=== PATIENT | female | born 1990 | race Caucasian/White ===

== ENCOUNTER 2018-04-10 14:30 | Inpatient (IN) | payer OTHER ==
[~2018-04-10] VITALS: Ht 162.6 cm; Wt 67.1 kg
[~2018-04-10 14:30] MED LIST: CLONAZEPAM1 M2 PO; CYCLOBENZAPRINE10 M1 PO; ESCITALOPRAM OX20 MG PO; IBUPROFEN800 M1 PO; TRAZODONE HCL100 M1 PO
[2018-04-10 15:33] LABS: ABSOLUTE BASOPHIL COUNT 0 /CUMM (0.0-0.2); ABSOLUTE EOSINOPHIL COUNT 0.1 /CUMM (0.0-0.7); ABSOLUTE GRANULOCYTE CT 2.1 /CUMM (1.4-6.5); ABSOLUTE LYMPH COUNT 5.2 /CUMM (1.2-3.4); ABSOLUTE MONOCYTE COUNT 0.5 /CUMM (0.10-0.60); BASOPHIL % 0.4 % (0.0-2.0); EOSINOPHIL % 0.9 % (0-5); GRANULOCYTE % 26.5 % (42.2-75.2); HEMATOCRIT 43.1 % (37-47); MEAN CORPUSCULAR HGB 31.5 PG (27.0-31.0); MEAN CORPUSCULAR HGB CONC 33.9 G/DL (33.0-37.0); MEAN CORPUSCULAR VOLUME 92.8 FL (81.0-99.0); MEAN PLATELET VOLUME 8.4 FL (7.4-10.4); PLATELET COUNT 99 /CUMM (130-400); RBC DISTRIBUTION WIDTH 13.6 % (11.5-14.5); RED BLOOD CELL CT 4.65 /CUMM (4.20-5.40); WHITE BLOOD CELL COUNT 7.9 /CUMM (4.8-10.8)
--- NOTE | 2018-04-10 19:13 | ED GI/GU/ABDOMINAL COMPLAINT ---
History of Present Illness General Chief Complaint: General Adult Stated Complaint: PT HAS PAIN UNDER THE BREAST AND VOMITING Source: patient, family Exam Limitations: no limitations Vital Signs & Intake/Output Vital Signs & Intake/Output Vital Signs Date Time Temp Pulse Resp B/P B/P Pulse O2 O2 Flow FiO2 Mean Ox Delivery Rate 04/12 1427 98.4 83 18 100/68 96 Room Air 04/12 0625 97.8 69 20 104/72 98 ED Intake and Output 04/13 0000 04/12 1200 Intake Total 740 Output Total Balance 740 Intake, Oral 740 Allergies Coded Allergies: No Known Allergies (04/08/17) Triage Note: PT TO ED C/O 1.5 WEEKS OF N/V, DIZZINESS, WEAK, LIGHTHEADED. C/O UPPER ABD PAIN X 3 DAYS. PAIN RADIATES TO RIGHT SHOULDER. C/O DARK URINE, NO OTHER S/S. Triage Nurses Notes Reviewed? yes ? n Is pt currently ? No Duration: day(s): Timing: recent history HPI: 27 yo female with a history of hepatitis C presents to the ED for nausea, vomiting, and right upper quadrant abdominal pain x 6 days that as progressively worsened. Patient admits that vomiting started 6 days ago and she admits to having 3-4 episodes per day of copious emesis. The content ranges from food colored to yellow in consistency. Anything will trigger it and it can happen within 5-10 mins after eating. She has taken ibuporfen for it and denies any relief from it. Has difficulty with wanting to eat for fear of emesis. She feels nautious and is okay with uzbek fries and egg drop soup. Tries to stay hydrated by drinking juice, gatorade, and what little water she can tolerate. She also admits that her urine has changed in color consistency and spell during the last three days. Her urine now is dark brown with a strong odor, denies any history of this happening before. She has right upper quadrant epigastric pain that is dull sharp and feels like someone is stepping on her. She admits to nausea, vomiting, abdominal pain, headache, dizziness, loss of appetite, but denies any fever, diarrhea, chest pain, cough, chills, and shortness of breath. She was recently dianosed with Hepatitis C and recovered on her own, she did not receive any treatment. 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 (Jeff Martinez) Reconcile Medications Ondansetron HCl (Zofran) 4 MG TABLET 1 TAB PO TID PRN nausea (Phani HARPER,Arturo Oconnor) Past History Travel History Traveled to [place] past 21 day No Medical History Any Pertinent Medical History? see below for history Neurological: NONE EENT: NONE Cardiovascular: NONE Respiratory: NONE Gastrointestinal: NONE Hepatic: HEP C Renal: NONE Musculoskeletal: NONE Psychiatric: anxiety, insomnia Endocrine: NONE Other Medical Hx: PSORIASIS, EXERCISE INDUCED ASTHMA Surgical History Surgical History: none Psychosocial History What is your primary language Kenyan Tobacco Use: Current Not Daily Daily Tobacco Use Amount/Type: =< 4 Cigarettes daily ETOH Use: denies use Illicit Drug Use: denies illicit drug use Family History Hx Contributory? No (Jeff Martinez) Review of Systems Review of Systems Constitutional: Reports: see HPI. EENTM: Reports: see HPI, icterus. Respiratory: Reports: see HPI. Cardiovascular: Reports: see HPI. GI: Reports: see HPI, abdominal pain, nausea, vomiting. Genitourinary: Reports: see HPI. Musculoskeletal: Reports: see HPI. Skin: Reports: see HPI. Neurological/Psychological: Reports: see HPI. Hematologic/Endocrine: Reports: see HPI. (Jeff Martinez) Physical Exam Physical Exam General Appearance: well developed/nourished, no apparent distress, alert, awake Head: atraumatic, normal appearance Eyes: Bilateral: PERRL, EOMI, abnormal pupil. Ears, Nose, Throat, Mouth: hearing grossly normal Neck: normal inspection Respiratory: normal breath sounds, chest non-tender Cardiovascular: regular rate/rhythm Gastrointestinal: normal bowel sounds, tenderness, hepatomegaly Rectal: normal inspection Back: normal inspection, normal range of motion Extremities: normal range of motion Core Measures ACS in differential dx? No Sepsis Present: No Sepsis Focused Exam Completed? No (Jeff Martinez) Progress Differential Diagnosis: cholecystitis, cholangitis, choledocholithiasis, hepatitis, Plan of Care: Orders Procedure Date/time Status Discharge Patient 04/12 UNK Active Laboratory Tests 04/12/18 0804: Ceruloplasmin Pending, Lyme Disease Antibody Pending, Infectious [place] Titer Pending 04/12/18 0804: Anion Gap 7, Estimated GFR > 60, BUN/Creatinine Ratio 16.7, Total Bilirubin 1.4 H, Direct Bilirubin 0.9 H, AST 200 H, ALT 944 H, Alkaline Phosphatase 226 H, Total Protein 6.2 L, Albumin 3.5, PT 12.5, INR 1.15, CBC w Diff NO MAN DIFF REQ , RBC 4.41, MCV 92.8, MCH 31.4 H, MCHC 33.9, RDW 13.8, MPV 8.8, Gran % 40.4 L, Lymphocytes % 51.2 H, Monocytes % 6.6, Eosinophils % 1.5, Basophils % 0.3, Absolute Granulocytes 2.3, Absolute Lymphocytes 2.9, Absolute Monocytes 0.4, Absolute Eosinophils 0.1, Absolute Basophils 0, ELOISA Titer Pending, Anti-Nuclear Antibody Pending, Ref Lab Test Result Pending, EBV Capsid Ag IgG Ab Pending, EBV Capsid Ag IgM Ab Pending, EBV Nuclear Ag IgG Ab Pending, EBV Interpretation Pending Diagnostic Imaging: Viewed by Me: Ultrasound. Discussed w/RAD: Ultrasound. Radiology Impression: PATIENT: АНДРЕЙ BASSETT PRESENT AGE: 27 PATIENT ACCOUNT NO: [id number] : 88 LOCATION: [facility] ORDERING PHYSICIAN: Odalis WHITTINGTON SERVICE DATE: 04/10/18 EXAM TYPE: US - US-LIMITED ABDOMEN EXAMINATION: US ABDOMEN LIMITED CLINICAL INFORMATION: Upper abdominal pain with elevated AST/ALT. COMPARISON: Abdominal ultrasound 10/01/2016. TECHNIQUE: Real-time imaging of the right upper quadrant abdominal viscera. FINDINGS: PANCREAS: The pancreas is unremarkable. There is a nonspecific enlarged lymph node adjacent to the pancreatic head measuring 2.0 cm. LIVER: Normal. The liver demonstrates normal size, contour and echogenicity. No focal lesion or intrahepatic biliary duct dilatation. GALLBLADDER: No gallstones are identified however the gallbladder wall is markedly thickened and there is probable large volume complex pericholecystic fluid. Gallbladder wall thickness measures up to 5 mm. The patient is tender in this location. COMMON BILE DUCT: Normal in caliber measuring 0.3 cm in diameter. RIGHT KIDNEY: Normal. No hydronephrosis. No renal calculi or focal parenchymal lesions. The kidney measures 12.8 cm in maximum dimension. FREE FLUID: None. IMPRESSION: There is significant gallbladder wall thickening and there is probable large volume complex pericholecystic fluid. No definite calculi are identified. Findings may still be secondary to cholecystitis, hepatitis given the patient's history of elevated AST/ALT, hypoalbuminemia, or gallbladder malignancy. HIDA scan recommended if indicated. There is a nonspecific enlarged 2 cm lymph node adjacent to the pancreatic head. DICTATED BY: Israel Navarro MD DATE/TIME DICTATED:04/10/182020 TRIAL PARALEGAL:JULITA DATE/TIME TRANSCRIBED:2020 CONFIDENTIAL, DO NOT COPY WITHOUT APPROPRIATE AUTHORIZATION. < Electronically signed in Other Vendor System> SIGNED BY: Israel Navarro MD 04/10/182029 Initial ED EKG: none (Jeff Martinez) Departure Departure Disposition: STILL A PATIENT Condition: Stable Clinical Impression Primary Impression: Thickening of wall of gallbladder with pericholecystic fluid Secondary Impressions: Elevated liver function tests Referrals: Sapna Kumar APRN (PCP/Family) Departure Forms: Customer Survey General Discharge Information Admission Note Spoke With: George Mccann MD Documentation of Exam: Documentation of any treatments & extenuating circumstances including Concerns Regarding Discharge (functional status, medication knowledge or non-compliance, living conditions, etc.) that warrant an admission rather than observation: GI consultation. MRCP. Surgery consultation. Possibly HIDA scan/ERCP. Repeat labs. Medically not safe for discharge. Cholecystitis versus choledocholithiasis versus hepatitis. Patient will need close observation. (Jeff Martinez) Departure Prescriptions: Current Visit Scripts Ondansetron HCl (Zofran) 1 TAB PO TID PRN nausea #30 TAB PA/BILINGUAL OPERATOR Co-Sign Statement Statement: ED Attending supervision documentation- [x] I saw and evaluated the patient. I have also reviewed all the pertinent lab results and diagnostic results. I agree with the findings and the plan of care as documented in the PA's/BILINGUAL OPERATOR's documentation. [] I have reviewed the ED Record and agree with the PA's/BILINGUAL OPERATOR's documentation. [] Additions or exceptions (if any) to the PAs/BILINGUAL OPERATOR's note and plan are summarized below: [] (Phani HARPER,Arturo Oconnor) Sig/Gabriel Start time Last Medication Dose Stop Time Status Admin Bisacodyl 10 MG ONCE ONE 04/11 1200 AC (Dulcolax Supp) 04/11 1201 Sodium Chloride 1,000 ML Q13H 04/11 0045 AC 04/11 (Normal Saline 0.9%) 04/12 0244 0044 Ondansetron HCl 4 MG Q6P PRN 04/10 2300 AC 04/11 (Zofran) 0256 Trimethobenzamide HCl 200 MG 4 TIMES/DAY PRN 04/10 2300 AC (Tigan) Acetaminophen 650 MG Q6P PRN 04/10 2215 AC 04/11 (Tylenol) 0256 Acetaminophen 1,000 MG Q6P PRN 04/10 2215 AC (Ofirmev) Laboratory Tests 04/11/18 0700: Anion Gap 8, Estimated GFR > 60, BUN/Creatinine Ratio 13.3, Total Bilirubin 2.0 H, Direct Bilirubin 1.7 H, AST 372 H, ALT 1284 H, Alkaline Phosphatase 219 H , Total Protein 5.4 L, Albumin 3.0 L, Triglycerides 119, Cholesterol 85, LDL Cholesterol, Calc 42 L, HDL Cholesterol 20 L, Cholesterol/HDL Ratio 4, CBC w Diff Pending, WBC Pending, RBC Pending, Hgb Pending, Hct Pending, MCV Pending, MCH Pending, MCHC Pending, RDW Pending, Plt Count Pending, MPV Pending, Gran % Pending, Lymphocytes % Pending, Monocytes % Pending, Eosinophils % Pending, Basophils % Pending, Absolute Granulocytes Pending, Absolute Lymphocytes Pending , Absolute Monocytes Pending, Absolute Eosinophils Pending, Absolute Basophils Pending, HCV RNA (PCR) IUs/ml Pending, HCV RNA PCR log IUs/ml Pending 04/11/18 0042: Urine Opiates Screen < 100, Methadone Screen < 40, Barbiturate Screen < 60, Ur Phencyclidine Scrn < 6.00, Amphetamines Screen < 100, U Benzodiazepines Scrn < 85, Urine Cocaine Screen < 50, Urine Cannabis Screen < 5.00 04/10/18 1747: Urine Color YEL, Urine Clarity HAZY H, Urine pH 7.0, Ur Specific [place] 1.015, Urine Protein NEG, Urine Ketones NEG, Urine Nitrite NEG, Urine Bilirubin POS@ ICTO H, Urine Urobilinogen >=8.0 H, Ur Leukocyte Esterase SMALL H, Ur Microscopic SEDIMENT EXAMINED, Urine WBC 1-3 H, Ur Epithelial Cells MANY H, Urine Bacteria MOD H, Urine Mucus FEW, Urine Hemoglobin NEG, Urine Glucose NEG 04/10/18 1526: Anion Gap 7, Estimated GFR > 60, BUN/Creatinine Ratio 17.1, Glucose 108 H, Calcium 8.8, Total Bilirubin 2.7 H, AST 716 H, ALT 1796 H, Alkaline Phosphatase 244 H, Total Protein 6.4, Albumin 3.6, Globulin 2.8, Albumin/ Globulin Ratio 1.3, Lipase 48, PT 13.5 H, INR 1.24 H, APTT 37, CBC w Diff MAN DIFF ORDERED, RBC 4.65, MCV 92.8, MCH 31.5 H, MCHC 33.9, RDW 13.6, MPV 8.4, Gran % 26.5 L, Lymphocytes % 65.7 H, Monocytes % 6.5, Eosinophils % 0.9, Basophils % 0.4, Absolute Granulocytes 2.1, Absolute Lymphocytes 5.2 H, Absolute Monocytes 0.5, Absolute Eosinophils 0.1, Absolute Basophils 0, Platelet Estimate DECREASED, Normocytic RBCs VERIFIED, Normochromic RBCs VERIFIED, Hepatitis A IgM Ab Pending, Hep Bs Antigen Pending, Hep B Core IgM Ab Conf Pending, Hepatitis C Antibody Pending, HIV 1&2 Ab Western Blot NONREACTIVE, Serum Alcohol < 10.0 Diagnostic Imaging: Viewed by Me: Ultrasound. Discussed w/RAD: Ultrasound. Radiology Impression: PATIENT: АНДРЕЙ BASSETT PRESENT AGE: 27 PATIENT ACCOUNT NO: [id number] : 88 LOCATION: [facility] ORDERING PHYSICIAN: Odalis WHITTINGTON SERVICE DATE: 04/10/18 EXAM TYPE: US - US-LIMITED ABDOMEN EXAMINATION: US ABDOMEN LIMITED CLINICAL INFORMATION: Upper abdominal pain with elevated AST/ALT. COMPARISON: Abdominal ultrasound 10/01/2016. TECHNIQUE: Real-time imaging of the right upper quadrant abdominal viscera. FINDINGS: PANCREAS: The pancreas is unremarkable. There is a nonspecific enlarged lymph node adjacent to the pancreatic head measuring 2.0 cm. LIVER: Normal. The liver demonstrates normal size, contour and echogenicity. No focal lesion or intrahepatic biliary duct dilatation. GALLBLADDER: No gallstones are identified however the gallbladder wall is markedly thickened and there is probable large volume complex pericholecystic fluid. Gallbladder wall thickness measures up to 5 mm. The patient is tender in this location. COMMON BILE DUCT: Normal in caliber measuring 0.3 cm in diameter. RIGHT KIDNEY: Normal. No hydronephrosis. No renal calculi or focal parenchymal lesions. The kidney measures 12.8 cm in maximum dimension. FREE FLUID: None. IMPRESSION: There is significant gallbladder wall thickening and there is probable large volume complex pericholecystic fluid. No definite calculi are identified. Findings may still be secondary to cholecystitis, hepatitis given the patient's history of elevated AST/ALT, hypoalbuminemia, or gallbladder malignancy. HIDA scan recommended if indicated. There is a nonspecific enlarged 2 cm lymph node adjacent to the pancreatic head. DICTATED BY: Israel Navarro MD DATE/TIME DICTATED:04/10/182020 TRIAL PARALEGAL:JULITA DATE/TIME TRANSCRIBED:2020 CONFIDENTIAL, DO NOT COPY WITHOUT APPROPRIATE AUTHORIZATION. < Electronically signed in Other Vendor System> SIGNED BY: Israel Navarro MD 04/10/182029 Initial ED EKG: none Departure Departure Disposition: STILL A PATIENT Condition: Stable Clinical Impression Primary Impression: Thickening of wall of gallbladder with pericholecystic fluid Secondary Impressions: Elevated liver function tests Referrals: Sapna Kumar APRN (PCP/Family) Departure Forms: Customer Survey General Discharge Information Admission Note Spoke With: George Mccann MD Documentation of Exam: Documentation of any treatments & extenuating circumstances including Concerns Regarding Discharge (functional status, medication knowledge or non-compliance, living conditions, etc.) that warrant an admission rather than observation: GI consultation. MRCP. Surgery consultation. Possibly HIDA scan/ERCP. Repeat labs. Medically not safe for discharge. Cholecystitis versus choledocholithiasis versus hepatitis. Patient will need close observation.
--- NOTE | 2018-04-10 20:30 | ULTRASOUND REPORT ---
EXAMINATION: US ABDOMEN LIMITED CLINICAL INFORMATION: Upper abdominal pain with elevated AST/ALT. COMPARISON: Abdominal ultrasound 10/01/2016. TECHNIQUE: Real-time imaging of the right upper quadrant abdominal viscera. FINDINGS: PANCREAS: The pancreas is unremarkable. There is a nonspecific enlarged lymph node adjacent to the pancreatic head measuring 2.0 cm. LIVER: Normal. The liver demonstrates normal size, contour and echogenicity. No focal lesion or intrahepatic biliary duct dilatation. GALLBLADDER: No gallstones are identified however the gallbladder wall is markedly thickened and there is probable large volume complex pericholecystic fluid. Gallbladder wall thickness measures up to 5 mm. The patient is tender in this location. COMMON BILE DUCT: Normal in caliber measuring 0.3 cm in diameter. RIGHT KIDNEY: Normal. No hydronephrosis. No renal calculi or focal parenchymal lesions. The kidney measures 12.8 cm in maximum dimension. FREE FLUID: None. IMPRESSION: There is significant gallbladder wall thickening and there is probable large volume complex pericholecystic fluid. No definite calculi are identified. Findings may still be secondary to cholecystitis, hepatitis given the patient's history of elevated AST/ALT, hypoalbuminemia, or gallbladder malignancy. HIDA scan recommended if indicated. There is a nonspecific enlarged 2 cm lymph node adjacent to the pancreatic head.
[2018-04-10 21:24] LABS: PT 13.5 SEC (9.4-12.5); PTT 37 SEC (25-37)
[2018-04-10] MEDS ORDERED: IBUPROFEN600 M1 PO (21:28)
--- NOTE | 2018-04-10 22:06 | History & Physical ---
Jimmy Rush 04/10/185: General Information and HPI MD Statement: I have seen and personally examined АНДРЕЙ BASSETT and documented this H&P. The patient is a 27 year old F who presented with a patient stated chief complaint of []. Source of Information: patient History of Present Illness: 27-year-old female active smoker with past medical history of hepatitis C 2017( without treatment), , JOVITA 2 status post cryotherapy ablation, history of heroin abuse presented to emergency department complaining of nausea vomiting for the last 5 days and then epigastric for the last 3 days. According to the patient she has been vomiting yellow in color, nonbloody since 5 days. It is associated with pain epigastrium which is dull and having intense intensity 5 / 10 with no relieving or aggravating factor and no radiation toward the back. Review of system is significant for black color urine and loss of appetite. She denies fever, chills, chest pain, palpitation, joint pain, burning micturition. Allergies/Medications Allergies: Coded Allergies: No Known Allergies (04/08/17) Home Med list Ibuprofen 600 MG TABLET 1 TAB PO ONCE PAIN/INFLAMMATION (Reported) with food Past History Travel History Traveled to [place] past 21 day No Medical History Neurological: NONE EENT: NONE Cardiovascular: NONE Respiratory: NONE Gastrointestinal: NONE Hepatic: HEP C Renal: NONE Musculoskeletal: NONE Psychiatric: anxiety, insomnia Endocrine: NONE Other Medical Hx: PSORIASIS, EXERCISE INDUCED ASTHMA Surgical History Surgical History: none Past Family/Social History Psychosocial History ETOH Use: denies use Illicit Drug Use: denies illicit drug use, Heroin abuse Review of Systems Review of Systems Cardiovascular: Reports: see HPI. Exam & Diagnostic Data Last 24 Hrs of Vital Signs/I&O Vital Signs Date Time Temp Pulse Resp B/P B/P Pulse O2 O2 Flow FiO2 Mean Ox Delivery Rate 04/10 2332 98.3 74 16 108/62 99 Room Air 04/10 2126 98.1 78 16 111/58 99 Room Air 04/10 1825 97.7 88 18 110/78 98 Room Air 04/10 1440 97.6 88 20 122/87 98 Room Air Intake & Output 04/10 1600 04/10 0800 04/10 0000 Intake Total Output Total Balance Patient 148 lb Weight Weight Reported by Patient Measurement Method Physical Exam General Appearance Alert, Oriented X3, Cooperative, No Acute Distress Cardiovascular Regular Rate, Normal S1, Normal S2, No Murmurs, Gallops, Rubs Lungs Clear to Auscultation, Normal Air Movement Abdomen Normal Bowel Sounds, Soft, Epigistriam tenderness, Rosales sign positive Extremities No Clubbing, No Cyanosis, No Edema, Normal Pulses, No Tenderness/ Swelling Assessment/Plan Assessment: 27-year-old female active smoker with past medical history of hepatitis C 2017( without antivirli treatment), , JOVITA 2 status post cryotherapy ablation, history of heroin abuse presented to emergency department complaining of nausea vomiting for the last 5 days and then epigastric for the last 3 days. At the time of presentation to emergency department her labs and vitals are given below Vitals: Temperature 97.6, heart rate 88, respiratory rate 20, blood pressure 122/87, oxygen saturation 98% Labs: CBC. WBC 7.9, hemoglobin/hematocrit 14.6/43.1, MCV 92.8, platelet count 99, Sodium 139, potassium 4.2, chloride 101, anion gap 7, bun 12, creatinine 0.7, GFR more than 60, bun/creatinine ratio 17.1, glucose 108 AST is/ALT 7 1 12/1795, alkaline phosphatase 244, albumin 3.6, total protein 6.4 Lipase 48 Ultrasonography: Gallbladder wall thickening and probably large volume complex pericholecystic fluid Cholecystitis Enlarged lymph node adjacent to the pancreatic head Problems list: -Acalculous cholecystitis -Hepatitis C flare -Cholangitis? -Constipation Acalculous cholecystitis: * Rosales sign is positive * Ultrasound finding is suggestive of cholecystitis * Patient will be admitted to general medical floor * IV access * For now the patient is n.p.o. for expected gastroenterology recommendation for intervention * Plan MRCP for today for the ntermediate probability of cholangitis * We will follow gastroenterology recommendation * Patient having pain in the epigastrium area * On examination Rosales sign is positive Hepatitis C flare: * Patient having history of hepatitis most probably due to IV drug abuse * ALT/Ast elevated * Patient having no hx of antiviril theraphy for Hepatitis C. * We will consider hepatitis C viral load * Other hepatitis D, hepatitis B, hepatitis C serology * We will follow labs * Low platelets count Cholangitis: * There is intermediate possibility of cholangitis * Although there is no dilatation of CBD * ALP is elevated without any stone in the CBD * There is no fever, leukocytosis * Will follow MRCP reports and GI recommendation Constipation: * We will give Dulcolax enema * Will follow the patient further *Follow-up series liver function test *Autoimmune workup *Workup for HIV ALPS Code status Full code As Ranked By This Provider Problem List: 1. Elevated LFTs 2. Transaminitis 3. RUQ abdominal pain 4. Cholecystitis 5. Constipation Core Measures/Misc (04/13) Sepsis (View protocol) If YES complete Sepsis Event Note If YES complete Sepsis Event Note Patti HARPER,Dennise 04/11/18 0159: Review of Systems Review of Systems Constitutional: Reports: see HPI. Core Measures/Misc (04/13) Acute Coronary Syndrome ACS Diagnosis: No Congestive Heart Failure Congestive Heart Failure Diagnosis No Cerebrovascular Accident CVA/TIA Diagnosis: No VTE (View Protocol) VTE Risk Factors Acute Medical Illness No Mechanical VTE Prophylaxis d/t N/A MechProphylax Ordered No VTE Pharm Prophylaxis d/t NA PharmProphylax ordered Sepsis (View protocol) Sepsis Present: No If YES complete Sepsis Event Note If YES complete Sepsis Event Note Resident Review Statement Resident Statement: examined this patient, discussed with manager internal, agreed with manager internal, discussed with family, reviewed EMR data (avail), discussed with nursing , discussed with case mgmt, reviewed images, amended to note Other Findings: Patient is a 27-year-old female with past medical history significant for untreated hepatitis C (inactive), IV drug abuse with heroin in remission for the past year, 2 pack smoking history, anxiety, psoriasis presents to [facility] with concerns of significant nausea and vomiting for the past 5 days, right upper quadrant abdominal pain for the past 3 days. Patient also notes dark urine for the past 3 days and children's tutor nursery stools. Patient denies any similar episodes in the past, denies fevers/chills. Review of systems completely negative. VS at presentation are stable. Physical exam significant for RUQ pain, + murphys sign. Clear lungs, normal heart sounds. Labs did show thormbocytopenia 99, BUN/Cr 12/0.7, AST/ALT 716/1796, ALP 244, total Bili 2.7, INR 1.24. UA hazy iwth + bili. Utox negative. Hep panel pending. Differntial Acute RUQ abdominal pain with referred pain to right shoulder typical for acute cholecystits with physcal exam correlating with + murphys sign. Abdominal ultrasound did show complex pericholecystic fluid with gall bladder thickening raising concern of ? malignancy. Transaminitis AST/ALT 716/1796, Elevated ALP 244, Elevated Bili are concerning for acute cholangitis on top of cholecystitis. Other remote possibilities are autoimmune hepatitis, hepatitis C flare up, Superadded hepatitis D infection. Patient appears very stable and so admitted to general medicine floor. Plan Admit to general medicine floor Acute RUQ pain * USG - Large pericholecystic fluid with gall bladder thickening * Proceed with MRCP for intermediate probability of cholangitis (no CBD dilatation) * If positive MRCP for stones --> ERCP * IV fluids * IV antiemetics * NPO for now * Hold abx given no white count, stable vitals - if decompensates low threshold to start * Trend LFT's, chem panel, CBC * Consider autoimmune panel * HIV/hepatitis panel H/o IV drug abuse Low AG, Thrombocytopenia. * Obtain Hep C viral load * Consider reactivation as a potential diagnosis * Patient reports being clean and had 2 kids. Constipation Since apr 06. * dulcolax supp * miralax, dulcolax, sennaS after MRCP\ * Consider Enema if the above do not help. DVT prophylaxis ALPS Code status Full code Ramy HARPERGeorge 04/11/18 0630: Core Measures/Misc (04/13) Sepsis (View protocol) If YES complete Sepsis Event Note If YES complete Sepsis Event Note Attending MD Review Statement Attending Statement Attending MD Statement: examined this patient, discuss w/resident/PA/BELL PERSON, agreed w/resident/PA/BELL PERSON, reviewed EMR data (avail), discussed with nursing, discussed with case mgmt, amended to note Attending Assessment/Plan: This patient is a 27-year-old white female with a significant past medical history for untreated hepatitis C (?inactive), IV drug abuse with heroin in remission for the past year, 2 pack smoking history, anxiety, psoriasis who presents to [facility] with concerns of significant nausea and vomiting for the past 5 days, right upper quadrant abdominal pain for the past 3 days. Patient also notes dark urine for the past 3 days and children's tutor nursery stools. She denies any similar episodes in the past and denies fevers/chills. Upon evaluation in the emergency department the patient is afebrile, vital signs stable, no elevation in her white blood cell count, mild elevation in her INR to 1.24, AST 716, ALT 1796, alkaline phosphatase 244, abdominal ultrasound There is significant gallbladder wall thickening and there is probable large volume complex pericholecystic fluid. No definite calculi are identified. Findings may still be secondary to cholecystitis, hepatitis given the patient's history of elevated AST/ALT, hypoalbuminemia, or gallbladder malignancy. HIDA scan recommended if indicated. There is a nonspecific enlarged 2 cm lymph node adjacent to the pancreatic head.. A surgical consultation was obtained while she was in the ER Laboratory data concerning for hepatitis or choledocholithiasis. Given absence of biliary ductal dilatation on ultrasound, doubt stone disease. Ultrasound confirms the absence of stones. Recommend hepatitis w/u. GI consultation. Supect gallbladder wall thickening secondary to hepatitis.. The patient will be admitted to general med for hepatitis, cholecystitis, abdominal pain and nausea and vomiting. Will proceed with MRCP for intermediate probability of cholangitis (no CBD dilatation), IV fluids, IV antiemetics, NPO for now. Hold abx given and obtain HIV/hepatitis panel. Full code
--- NOTE | 2018-04-10 22:30 | PN- General Surgery ---
Subjective Subjective: error Objective Vital Signs and I&Os error Physical Exam: error Assessment/Plan Assessment/Plan error Core Measures Venous Thromboembolism VTE Risk Factors Other No Mechanical VTE Prophylaxis d/t Other No VTE Pharm Prophylaxis d/t Other 04/10 1825 97.7 88 18 110/78 98 Room Air 04/10 1440 97.6 88 20 122/87 98 Room Air Intake & Output 04/10 1600 04/10 0800 04/10 0000 04/09 1600 04/09 0804/09 0000 Intake Total Output Total Balance Patient 148 lb Weight Weight Reported by Patient Measurement Method Physical Exam: gen- nad [id number] pulm-ctab abd-soft, nd, ttp epigastrum/ruq, no r/g ext- calves soft nt bl Results Last 48 Hours of Labs: Laboratory Tests 04/10 04/10 1747 1526 Chemistry Sodium (137 - 145 mmol/L) 139 Potassium (3.5 - 5.1 mmol/L) 4.2 Chloride (98 - 107 mmol/L) 101 Carbon Dioxide (22 - 30 mmol/L) 31 H Anion Gap (5 - 16) 7 BUN (7 - 17 mg/dL) 12 Creatinine (0.5 - 1.0 mg/dL) 0.7 Estimated GFR (>60 ml/min) > 60 BUN/Creatinine Ratio (7 - 25 %) 17.1 Glucose (65 - 99 mg/dL) 108 H Calcium (8.4 - 10.2 mg/dL) 8.8 Total Bilirubin (0.2 - 1.3 mg/dL) 2.7 H AST (14 - 36 U/L) 716 H ALT (9 - 52 U/L) 1796 H Alkaline Phosphatase (<127 U/L) 244 H Total Protein (6.3 - 8.2 g/dL) 6.4 Albumin (3.5 - 5.0 g/dL) 3.6 Globulin (1.9 - 4.2 gm/dL) 2.8 Albumin/Globulin Ratio (1.1 - 2.2 %) 1.3 Lipase (23 - 300 U/L) 48 Coagulation PT (9.4 - 12.5 SEC) 13.5 H INR (0.90 - 1.19) 1.24 H APTT (25 - 37 SEC) 37 Hematology CBC w Diff MAN DIFF ORDERED WBC (4.8 - 10.8 /CUMM) 7.9 RBC (4.20 - 5.40 /CUMM) 4.65 Hgb (12.0 - 16.0 G/DL) 14.6 Hct (37 - 47 %) 43.1 MCV (81.0 - 99.0 FL) 92.8 MCH (27.0 - 31.0 PG) 31.5 H MCHC (33.0 - 37.0 G/DL) 33.9 RDW (11.5 - 14.5 %) 13.6 Plt Count (130 - 400 /CUMM) 99 L MPV (7.4 - 10.4 FL) 8.4 Gran % (42.2 - 75.2 %) 26.5 L Lymphocytes % (20.5 - 51.1 %) 65.7 H Monocytes % (1.7 - 9.3 %) 6.5 Eosinophils % (0 - 5 %) 0.9 Basophils % (0.0 - 2.0 %) 0.4 Absolute Granulocytes (1.4 - 6.5 /CUMM) 2.1 Absolute Lymphocytes (1.2 - 3.4 /CUMM) 5.2 H Absolute Monocytes (0.10 - 0.60 /CUMM) 0.5 Absolute Eosinophils (0.0 - 0.7 /CUMM) 0.1 Absolute Basophils (0.0 - 0.2 /CUMM) 0 Platelet Estimate (ADEQUATE) DECREASED Normocytic RBCs VERIFIED Normochromic RBCs VERIFIED Serology Hepatitis A IgM Ab (NONREACTIVE) Pending Hep Bs Antigen (NONREACTIVE) Pending Hep B Core IgM Ab Conf (NONREACTIVE) Pending Hepatitis C Antibody (NONREACTIVE) Pending Toxicology Serum Alcohol (<10 MG/DL) < 10.0 Urines Urine Color (YEL,AMB,STR) YEL Urine Clarity (CLEAR) HAZY H Urine pH (5.0 - 8.0) 7.0 Ur Specific [place] (1.001 - 1.035) 1.015 Urine Protein (NEG,<30 MG/DL) NEG Urine Ketones (NEG) NEG Urine Nitrite (NEG) NEG Urine Bilirubin (NEG) POS@ICTO H Urine Urobilinogen (0.1 - 1.0 EU/dl) >=8.0 H Ur Leukocyte Esterase (NEG) SMALL H Ur Microscopic SEDIMENT EXAMINED Urine WBC (0 - 2 /HPF) 1-3 H Ur Epithelial Cells (NONE,FEW) MANY H Urine Bacteria (NEG/NONE) MOD H Urine Mucus (FEW,NONE) FEW Urine Hemoglobin (NEG) NEG Urine Glucose (N MG/DL) NEG Recent Imaging Studies: SERVICE DATE: 04/10/18 EXAM TYPE: US - US-LIMITED ABDOMEN EXAMINATION: US ABDOMEN LIMITED CLINICAL INFORMATION: Upper abdominal pain with elevated AST/ALT. COMPARISON: Abdominal ultrasound 10/01/2016. TECHNIQUE: Real-time imaging of the right upper quadrant abdominal viscera. FINDINGS: PANCREAS: The pancreas is unremarkable. There is a nonspecific enlarged lymph node adjacent to the pancreatic head measuring 2.0 cm. LIVER: Normal. The liver demonstrates normal size, contour and echogenicity. No focal lesion or intrahepatic biliary duct dilatation. GALLBLADDER: No gallstones are identified however the gallbladder wall is markedly thickened and there is probable large volume complex pericholecystic fluid. Gallbladder wall thickness measures up to 5 mm. The patient is tender in this location. COMMON BILE DUCT: Normal in caliber measuring 0.3 cm in diameter. RIGHT KIDNEY: Normal. No hydronephrosis. No renal calculi or focal parenchymal lesions. The kidney measures 12.8 cm in maximum dimension. FREE FLUID: None. IMPRESSION: There is significant gallbladder wall thickening and there is probable large volume complex pericholecystic fluid. No definite calculi are identified. Findings may still be secondary to cholecystitis, hepatitis given the patient's history of elevated AST/ALT, hypoalbuminemia, or gallbladder malignancy. HIDA scan recommended if indicated. There is a nonspecific enlarged 2 cm lymph node adjacent to the pancreatic head. Assessment/Plan Assessment/Plan A- 27F with 1 week hx RUQ/epigastric pain with elevated LFTs, Hx untreated hepC 1 year ago, without WBC, without gallstones or ductal dilation on imaging, likely viral in nature. P- rec Gi consult, medical evaluation will fu labs, hep panel, mrcp possible cholecystectomy if workup leads to diagnosis of cholecystitis/ symptomatic cholelithiasis dw Dr. astudillo. Will cont to follow Problem List: 1. RUQ abdominal pain
--- NOTE | 2018-04-10 22:54 | Cons- General Surgery ---
See Addendum Ana Thomas 04/10/18 2253: General Information and HPI Consulting Request Date of Consult: 04/10/18 Requested By: George Mccann MD Reason for Consult: ruq pain, elevated lfts History of Present Illness: 27yoF presents to ED with 1 week history persistent ruq abd pain with intermittent nausea/vomiting and decreased appetite. Hx HepC diagnosed 1 year ago, untreated due to financial reasons, though self resolved per pt. Denies symptoms since onset 1 year ago. Current pain began 1 week ago, has been vomiting intermittently though still eating, though admits to decreased appetite. Denies recent change in diet or lifestyle, denies etoh use, denies current ivda (last use 1 year ago). No fevers, chills, cp, sob. PMHx also inclused anxiety and depression, though does not take perscribed meds due to lack of finances. PSurg hx includes c/s x1. Allergies/Medications Allergies: Coded Allergies: No Known Allergies (04/08/17) Home Med List: Ibuprofen 600 MG TABLET 1 TAB PO ONCE PAIN/INFLAMMATION (Reported) with food Past History Medical History Neurological: NONE EENT: NONE Cardiovascular: NONE Respiratory: NONE Gastrointestinal: NONE Hepatic: HEP C Renal: NONE Musculoskeletal: NONE Psychiatric: anxiety, depression, insomnia Endocrine: NONE Surgical History Pertinent Surgical History: Psychosocial History Smoking Status: Current Everyday Smoker ETOH Use: denies use Illicit Drug Use: denies illicit drug use, hx ivda, clean x1 year Employment History Employment: Unemployed Exam & Diagnostic Data Vital Signs and I&O Vital Signs Date Time Temp Pulse Resp B/P B/P Pulse O2 O2 Flow FiO2 Mean Ox Delivery Rate 04/10 2126 98.1 78 16 111/58 99 Room Air 04/10 1825 97.7 88 18 110/78 98 Room Air 04/10 1440 97.6 88 20 122/87 98 Room Air Intake & Output 04/10 1600 04/10 0800 04/10 0000 04/09 1600 04/09 0804/09 0000 Intake Total Output Total Balance Patient 148 lb Weight Weight Reported by Patient Measurement Method Physical Exam: gen- nad [id number] pulm-ctab abd-soft, nd, ttp epigastrum/ruq, no r/g ext- calves soft nt bl Last 24 Hours of Labs: Laboratory Tests 04/10 04/10 1747 1526 Chemistry Sodium (137 - 145 mmol/L) 139 Potassium (3.5 - 5.1 mmol/L) 4.2 Chloride (98 - 107 mmol/L) 101 Carbon Dioxide (22 - 30 mmol/L) 31 H Anion Gap (5 - 16) 7 BUN (7 - 17 mg/dL) 12 Creatinine (0.5 - 1.0 mg/dL) 0.7 Estimated GFR (>60 ml/min) > 60 BUN/Creatinine Ratio (7 - 25 %) 17.1 Glucose (65 - 99 mg/dL) 108 H Calcium (8.4 - 10.2 mg/dL) 8.8 Total Bilirubin (0.2 - 1.3 mg/dL) 2.7 H AST (14 - 36 U/L) 716 H ALT (9 - 52 U/L) 1796 H Alkaline Phosphatase (<127 U/L) 244 H Total Protein (6.3 - 8.2 g/dL) 6.4 Albumin (3.5 - 5.0 g/dL) 3.6 Globulin (1.9 - 4.2 gm/dL) 2.8 Albumin/Globulin Ratio (1.1 - 2.2 %) 1.3 Lipase (23 - 300 U/L) 48 Coagulation PT (9.4 - 12.5 SEC) 13.5 H INR (0.90 - 1.19) 1.24 H APTT (25 - 37 SEC) 37 Hematology CBC w Diff MAN DIFF ORDERED WBC (4.8 - 10.8 /CUMM) 7.9 RBC (4.20 - 5.40 /CUMM) 4.65 Hgb (12.0 - 16.0 G/DL) 14.6 Hct (37 - 47 %) 43.1 MCV (81.0 - 99.0 FL) 92.8 MCH (27.0 - 31.0 PG) 31.5 H MCHC (33.0 - 37.0 G/DL) 33.9 RDW (11.5 - 14.5 %) 13.6 Plt Count (130 - 400 /CUMM) 99 L MPV (7.4 - 10.4 FL) 8.4 Gran % (42.2 - 75.2 %) 26.5 L Lymphocytes % (20.5 - 51.1 %) 65.7 H Monocytes % (1.7 - 9.3 %) 6.5 Eosinophils % (0 - 5 %) 0.9 Basophils % (0.0 - 2.0 %) 0.4 Absolute Granulocytes (1.4 - 6.5 /CUMM) 2.1 Absolute Lymphocytes (1.2 - 3.4 /CUMM) 5.2 H Absolute Monocytes (0.10 - 0.60 /CUMM) 0.5 Absolute Eosinophils (0.0 - 0.7 /CUMM) 0.1 Absolute Basophils (0.0 - 0.2 /CUMM) 0 Platelet Estimate (ADEQUATE) DECREASED Normocytic RBCs VERIFIED Normochromic RBCs VERIFIED Serology Hepatitis A IgM Ab (NONREACTIVE) Pending Hep Bs Antigen (NONREACTIVE) Pending Hep B Core IgM Ab Conf (NONREACTIVE) Pending Hepatitis C Antibody (NONREACTIVE) Pending Toxicology Serum Alcohol (<10 MG/DL) < 10.0 Urines Urine Color (YEL,AMB,STR) YEL Urine Clarity (CLEAR) HAZY H Urine pH (5.0 - 8.0) 7.0 Ur Specific [place] (1.001 - 1.035) 1.015 Urine Protein (NEG,<30 MG/DL) NEG Urine Ketones (NEG) NEG Urine Nitrite (NEG) NEG Urine Bilirubin (NEG) POS@ICTO H Urine Urobilinogen (0.1 - 1.0 EU/dl) >=8.0 H Ur Leukocyte Esterase (NEG) SMALL H Ur Microscopic SEDIMENT EXAMINED Urine WBC (0 - 2 /HPF) 1-3 H Ur Epithelial Cells (NONE,FEW) MANY H Urine Bacteria (NEG/NONE) MOD H Urine Mucus (FEW,NONE) FEW Urine Hemoglobin (NEG) NEG Urine Glucose (N MG/DL) NEG Imaging Results: SERVICE DATE: 04/10/18 EXAM TYPE: US - US-LIMITED ABDOMEN EXAMINATION: US ABDOMEN LIMITED CLINICAL INFORMATION: Upper abdominal pain with elevated AST/ALT. COMPARISON: Abdominal ultrasound 10/01/2016. TECHNIQUE: Real-time imaging of the right upper quadrant abdominal viscera. FINDINGS: PANCREAS: The pancreas is unremarkable. There is a nonspecific enlarged lymph node adjacent to the pancreatic head measuring 2.0 cm. LIVER: Normal. The liver demonstrates normal size, contour and echogenicity. No focal lesion or intrahepatic biliary duct dilatation. GALLBLADDER: No gallstones are identified however the gallbladder wall is markedly thickened and there is probable large volume complex pericholecystic fluid. Gallbladder wall thickness measures up to 5 mm. The patient is tender in this location. COMMON BILE DUCT: Normal in caliber measuring 0.3 cm in diameter. RIGHT KIDNEY: Normal. No hydronephrosis. No renal calculi or focal parenchymal lesions. The kidney measures 12.8 cm in maximum dimension. FREE FLUID: None. IMPRESSION: There is significant gallbladder wall thickening and there is probable large volume complex pericholecystic fluid. No definite calculi are identified. Findings may still be secondary to cholecystitis, hepatitis given the patient's history of elevated AST/ALT, hypoalbuminemia, or gallbladder malignancy. HIDA scan recommended if indicated. There is a nonspecific enlarged 2 cm lymph node adjacent to the pancreatic head. Assessment/Plan Assessment/Plan A- 27F with 1 week hx RUQ/epigastric pain with elevated LFTs, Hx untreated hepC 1 year ago, without WBC, without gallstones or ductal dilation on imaging, likely viral in nature. P- rec Gi consult, medical evaluation will fu labs, hep panel, mrcp possible cholecystectomy if workup leads to diagnosis of cholecystitis/ symptomatic cholelithiasis dw Dr. astudillo. Will cont to follow Problem List: 1. RUQ abdominal pain 2. Elevated LFTs Consult Acknowledgment - Thank you for your consult request. Ash HARPERMilan Swati 04/11/18 9372: Assessment/Plan Consult Acknowledgment - Thank you for your consult request. Attending Review Statement Attending Statement Attending MD Statement: discuss w/resident/PA/FEDERAL AGENT, reviewed images Attending Assessment/Plan: As per PA note. Patient to be seen later today. Patient with RUQ pain. Laboratory data concerning for hepatitis or choledocholithiasis. Given absence of biliary ductal dilatation on ultrasound, doubt stone disease. Ultrasound confirms the absence of stones. Recommend hepatitis w/u. GI consultation. Supect gallbladder wall thickening secondary to hepatitis.
[2018-04-10 23:58] VITALS: BP 100/63
--- NOTE | 2018-04-11 02:35 | PN- Housestaff ---
Subjective Follow-up For: Acute RUQ pain - cholecystitis with possible cholangitis h/o IV drug abuse Constipation Subjective: Patient was in MRCP Review of Systems Constitutional: Reports: see HPI. Objective Last 24 Hrs of Vital Signs/I&O Vital Signs Date Time Temp Pulse Resp B/P B/P Pulse O2 O2 Flow FiO2 Mean Ox Delivery Rate 04/10 2358 97.8 76 20 100/63 100 04/10 2332 98.3 74 16 108/62 99 Room Air 04/10 2126 98.1 78 16 111/58 99 Room Air 04/10 1825 97.7 88 18 110/78 98 Room Air 04/10 1440 97.6 88 20 122/87 98 Room Air Intake & Output 04/11 0800 04/11 0000 04/10 1600 Intake Total 1000 Output Total Balance 1000 Intake, IV 1000 Patient 67.132 kg 67.132 kg Weight Weight Reported by Patient Reported by Patient Measurement Method Physical Exam General Appearance: Alert, Oriented X3, Cooperative, No Acute Distress Current Medications: Current Medications Sig/Gabriel Start time Last Medication Dose Route Stop Time Status Admin Acetaminophen 650 MG Q6P PRN 04/10 2215 AC 04/11 PO 0256 Acetaminophen 1,000 MG Q6P PRN 04/10 2215 AC IV Bisacodyl 10 MG ONCE ONE 04/11 1200 AC LA 04/11 1201 Ketorolac 30 MG ONCE ONE 04/10 2230 DC 04/10 Tromethamine IV 04/10 223 2225 Ketorolac 0 .STK-MED ONE 04/10 2220 DC Tromethamine .ROUTE Ondansetron HCl 4 MG Q6P PRN 04/10 2300 AC 04/11 IV 0256 Ondansetron HCl 0 .STK-MED ONE 04/10 1837 DC .ROUTE Ondansetron HCl 4 MG ONCE ONE 04/10 1830 DC 04/10 IV 04/10 1831 1850 Sodium Chloride 1,000 ML Q13H 04/11 0045 AC 04/11 IV 04/12 0244 0044 Sodium Chloride 1,000 ML BOLUS ONE 04/10 1830 DC 04/10 IV 04/10 1929 1850 Trimethobenzamide HCl 200 MG 4 TIMES/DAY PRN 04/10 2300 AC IM Last 24 Hrs of Lab/Nishant Results Last 24 Hrs of Labs/Mics: Laboratory Tests 04/11/18 0700: Anion Gap 8, Estimated GFR > 60, BUN/Creatinine Ratio 13.3, Total Bilirubin 2.0 H, Direct Bilirubin 1.7 H, AST 372 H, ALT 1284 H, Alkaline Phosphatase 219 H , Total Protein 5.4 L, Albumin 3.0 L, Triglycerides 119, Cholesterol 85, LDL Cholesterol, Calc 42 L, HDL Cholesterol 20 L, Cholesterol/HDL Ratio 4, CBC w Diff Pending, WBC Pending, RBC Pending, Hgb Pending, Hct Pending, MCV Pending, MCH Pending, MCHC Pending, RDW Pending, Plt Count Pending, MPV Pending, Gran % Pending, Lymphocytes % Pending, Monocytes % Pending, Eosinophils % Pending, Basophils % Pending, Absolute Granulocytes Pending, Absolute Lymphocytes Pending , Absolute Monocytes Pending, Absolute Eosinophils Pending, Absolute Basophils Pending, HCV RNA (PCR) IUs/ml Pending, HCV RNA PCR log IUs/ml Pending 04/11/18 0042: Urine Opiates Screen < 100, Methadone Screen < 40, Barbiturate Screen < 60, Ur Phencyclidine Scrn < 6.00, Amphetamines Screen < 100, U Benzodiazepines Scrn < 85, Urine Cocaine Screen < 50, Urine Cannabis Screen < 5.00 04/10/18 1747: Urine Color YEL, Urine Clarity HAZY H, Urine pH 7.0, Ur Specific [place] 1.015, Urine Protein NEG, Urine Ketones NEG, Urine Nitrite NEG, Urine Bilirubin POS@ ICTO H, Urine Urobilinogen >=8.0 H, Ur Leukocyte Esterase SMALL H, Ur Microscopic SEDIMENT EXAMINED, Urine WBC 1-3 H, Ur Epithelial Cells MANY H, Urine Bacteria MOD H, Urine Mucus FEW, Urine Hemoglobin NEG, Urine Glucose NEG 04/10/18 1526: Anion Gap 7, Estimated GFR > 60, BUN/Creatinine Ratio 17.1, Glucose 108 H, Calcium 8.8, Total Bilirubin 2.7 H, AST 716 H, ALT 1796 H, Alkaline Phosphatase 244 H, Total Protein 6.4, Albumin 3.6, Globulin 2.8, Albumin/ Globulin Ratio 1.3, Lipase 48, PT 13.5 H, INR 1.24 H, APTT 37, CBC w Diff MAN DIFF ORDERED, RBC 4.65, MCV 92.8, MCH 31.5 H, MCHC 33.9, RDW 13.6, MPV 8.4, Gran % 26.5 L, Lymphocytes % 65.7 H, Monocytes % 6.5, Eosinophils % 0.9, Basophils % 0.4, Absolute Granulocytes 2.1, Absolute Lymphocytes 5.2 H, Absolute Monocytes 0.5, Absolute Eosinophils 0.1, Absolute Basophils 0, Platelet Estimate DECREASED, Normocytic RBCs VERIFIED, Normochromic RBCs VERIFIED, Hepatitis A IgM Ab Pending, Hep Bs Antigen Pending, Hep B Core IgM Ab Conf Pending, Hepatitis C Antibody Pending, HIV 1&2 Ab Western Blot NONREACTIVE, Serum Alcohol < 10.0 Assessment/Plan Assessment: Patient is a 27-year-old female with past medical history significant for untreated hepatitis C (inactive), 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 Patient also notes dark urine for the past 3 days and floor manager stools. Patient denies any similar episodes in the past, denies fevers/chills. Review of systems completely negative. VS at presentation are stable. Physical exam significant for RUQ pain, + murphys sign. Clear lungs, normal heart sounds. Labs did show thormbocytopenia 99, BUN/Cr 12/0.7, AST/ALT 716/1796, ALP 244, total Bili 2.7, INR 1.24. UA hazy iwth + bili. Utox negative. Hep panel pending. Plan Admit to general medicine floor Acute RUQ pain * USG - Large pericholecystic fluid with gall bladder thickening * Proceed with MRCP for intermediate probability of cholangitis (no CBD dilatation) * If positive MRCP for stones --> ERCP * Continue IV fluids * IV antiemetics * NPO for now * Hold abx given no white count, stable vitals - if decompensates low threshold to start * Trend LFT's, chem panel, CBC * HIV/hepatitis panel H/o IV drug abuse Low AG, Thrombocytopenia. * Obtain Hep C viral load * Consider reactivation as a potential diagnosis * Patient reports being clean and had 2 kids. Constipation Since apr 06. * dulcolax supp * miralax, dulcolax, sennaS after MRCP * Consider Enema if the above do not help. DVT prophylaxis ALPS Code status Full code Problem List: 1. RUQ abdominal pain 2. Transaminitis 3. Elevated LFTs 4. Cholecystitis 5. Constipation Pain Ratin Pain Location: abdomen Pain Goal: Pain 4 or less Pain Plan: tylenol prn Tomorrow's Labs & Rationales: cbc bep lfts
--- NOTE | 2018-04-11 06:49 | PN- General Surgery ---
See Addendum Subjective Subjective: Patient continues to c/o constant rightsided abdominal pain with associated nausea, no vomiting. Denies pain radiating to back, fever, chills, chest pain, sob, Awaiting MRCP today. Objective Vital Signs and I&Os Vital Signs Date Time Temp Pulse Resp B/P B/P Pulse O2 O2 Flow FiO2 Mean Ox Delivery Rate 04/11 0737 98.1 67 18 105/60 99 04/10 2358 97.8 76 20 100/63 100 04/10 2332 98.3 74 16 108/62 99 Room Air 04/10 2126 98.1 78 16 111/58 99 Room Air 04/10 1825 97.7 88 18 110/78 98 Room Air 04/10 1440 97.6 88 20 122/87 98 Room Air Intake & Output 04/11 0800 04/11 0000 04/10 1600 04/10 0800 04/10 0000 04/09 1600 Intake Total 600 1000 Output Total Balance 600 1000 Intake, IV 600 1000 Intake, Oral 0 Patient 148 lb 148 lb Weight Weight Reported by Patient Reported by Patient Measurement Method Physical Exam: Gen - uncomfortable in nad Abd - soft, nondistended, moderately tender to palpation in ruq and epigastric regiion with vol guarding, no rebound Current Medications: Current Medications Sig/Gabriel Start time Last Medication Dose Route Stop Time Status Admin Acetaminophen 650 MG Q6P PRN 04/10 2215 AC 04/11 PO 0256 Acetaminophen 1,000 MG Q6P PRN 04/10 2215 AC IV Bisacodyl 10 MG ONCE ONE 04/11 1200 AC ID 04/11 1201 Ketorolac 30 MG ONCE ONE 04/10 2230 DC 04/10 Tromethamine IV 04/10 2231 2225 Ketorolac 0 .STK-MED ONE 04/10 2220 DC Tromethamine .ROUTE Ondansetron HCl 4 MG Q6P PRN 04/10 2300 AC 04/11 IV 0256 Ondansetron HCl 0 .STK-MED ONE 04/10 1837 DC .ROUTE Ondansetron HCl 4 MG ONCE ONE 04/10 1830 DC 04/10 IV 04/10 1831 1850 Sodium Chloride 1,000 ML Q13H 04/11 0045 AC 04/11 IV 04/12 0244 0044 Sodium Chloride 1,000 ML BOLUS ONE 04/10 1830 DC 04/10 IV 04/10 192 1850 Trimethobenzamide HCl 200 MG 4 TIMES/DAY PRN 04/10 2300 AC IM Results Last 48 Hours of Labs: Laboratory Tests 04/11 04/11 04/10 0700 0042 1747 Chemistry Sodium Pending Potassium Pending Chloride Pending Carbon Dioxide Pending Anion Gap Pending BUN Pending Creatinine Pending BUN/Creatinine Ratio Pending Total Bilirubin Pending Direct Bilirubin Pending AST Pending ALT Pending Alkaline Phosphatase Pending Total Protein Pending Albumin Pending Triglycerides Pending Cholesterol Pending LDL Cholesterol, Calc Pending HDL Cholesterol Pending Cholesterol/HDL Ratio Pending Hematology CBC w Diff Pending WBC Pending RBC Pending Hgb Pending Hct Pending MCV Pending MCH Pending MCHC Pending RDW Pending Plt Count Pending MPV Pending Serology HCV RNA (PCR) IUs/ml Pending HCV RNA PCR log IUs/ml Pending Toxicology Urine Opiates Screen (>2000 NG/ML) < 100 Methadone Screen (>300 NG/ML) < 40 Barbiturate Screen (>200 NG/ML) < 60 Ur Phencyclidine Scrn (>25 NG/ML) < 6.00 Amphetamines Screen (>1000 NG/ML) < 100 U Benzodiazepines Scrn (>200 NG/ML) < 85 Urine Cocaine Screen (>300 NG/ML) < 50 Urine Cannabis Screen (>50 NG/ML) < 5.00 Urines Urine Color (YEL,AMB,STR) YEL Urine Clarity (CLEAR) HAZY H Urine pH (5.0 - 8.0) 7.0 Ur Specific [place] (1.001 - 1.035) 1.015 Urine Protein (NEG,<30 MG/DL) NEG Urine Ketones (NEG) NEG Urine Nitrite (NEG) NEG Urine Bilirubin (NEG) POS@ICTO H Urine Urobilinogen (0.1 - 1.0 EU/dl) >=8.0 H Ur Leukocyte Esterase (NEG) SMALL H Ur Microscopic SEDIMENT EXAMINED Urine WBC (0 - 2 /HPF) 1-3 H Ur Epithelial Cells (NONE,FEW) MANY H Urine Bacteria (NEG/NONE) MOD H Urine Mucus (FEW,NONE) FEW Urine Hemoglobin (NEG) NEG Urine Glucose (N MG/DL) NEG 04/10 1526 Chemistry Sodium (137 - 145 mmol/L) 139 Potassium (3.5 - 5.1 mmol/L) 4.2 Chloride (98 - 107 mmol/L) 101 Carbon Dioxide (22 - 30 mmol/L) 31 H Anion Gap (5 - 16) 7 BUN (7 - 17 mg/dL) 12 Creatinine (0.5 - 1.0 mg/dL) 0.7 Estimated GFR (>60 ml/min) > 60 BUN/Creatinine Ratio (7 - 25 %) 17.1 Glucose (65 - 99 mg/dL) 108 H Calcium (8.4 - 10.2 mg/dL) 8.8 Total Bilirubin (0.2 - 1.3 mg/dL) 2.7 H AST (14 - 36 U/L) 716 H ALT (9 - 52 U/L) 1796 H Alkaline Phosphatase (<127 U/L) 244 H Total Protein (6.3 - 8.2 g/dL) 6.4 Albumin (3.5 - 5.0 g/dL) 3.6 Globulin (1.9 - 4.2 gm/dL) 2.8 Albumin/Globulin Ratio (1.1 - 2.2 %) 1.3 Lipase (23 - 300 U/L) 48 Coagulation PT (9.4 - 12.5 SEC) 13.5 H INR (0.90 - 1.19) 1.24 H APTT (25 - 37 SEC) 37 Hematology CBC w Diff MAN DIFF ORDERED WBC (4.8 - 10.8 /CUMM) 7.9 RBC (4.20 - 5.40 /CUMM) 4.65 Hgb (12.0 - 16.0 G/DL) 14.6 Hct (37 - 47 %) 43.1 MCV (81.0 - 99.0 FL) 92.8 MCH (27.0 - 31.0 PG) 31.5 H MCHC (33.0 - 37.0 G/DL) 33.9 RDW (11.5 - 14.5 %) 13.6 Plt Count (130 - 400 /CUMM) 99 L MPV (7.4 - 10.4 FL) 8.4 Gran % (42.2 - 75.2 %) 26.5 L Lymphocytes % (20.5 - 51.1 %) 65.7 H Monocytes % (1.7 - 9.3 %) 6.5 Eosinophils % (0 - 5 %) 0.9 Basophils % (0.0 - 2.0 %) 0.4 Absolute Granulocytes (1.4 - 6.5 /CUMM) 2.1 Absolute Lymphocytes (1.2 - 3.4 /CUMM) 5.2 H Absolute Monocytes (0.10 - 0.60 /CUMM) 0.5 Absolute Eosinophils (0.0 - 0.7 /CUMM) 0.1 Absolute Basophils (0.0 - 0.2 /CUMM) 0 Platelet Estimate (ADEQUATE) DECREASED Normocytic RBCs VERIFIED Normochromic RBCs VERIFIED Serology Hepatitis A IgM Ab (NONREACTIVE) Pending Hep Bs Antigen (NONREACTIVE) Pending Hep B Core IgM Ab Conf (NONREACTIVE) Pending Hepatitis C Antibody (NONREACTIVE) Pending HIV 1&2 Ab Western Blot (NONREACTIVE) NONREACTIVE Toxicology Serum Alcohol (<10 MG/DL) < 10.0 Assessment/Plan Assessment/Plan 27 F w/ a hx of untreated hep C 1 year ago, admitted with RUQ/epigastric pain and elevated LFTs, without gallstones or ductal dilation on imaging, likely viral in nature. GI consult F/u labs, hep panel, mrcp Possible lap shannon if evidence of cholecystitis/symptomatic cholelithiasis Will cont to follow Will d/w Dr. astudillo Core Measures Venous Thromboembolism VTE Risk Factors Other No Mechanical VTE Prophylaxis d/t Other No VTE Pharm Prophylaxis d/t Other
[2018-04-11 07:37] VITALS: BP 105/60
[2018-04-11 08:21] LABS: ABSOLUTE BASOPHIL COUNT 0 /CUMM (0.0-0.2); ABSOLUTE EOSINOPHIL COUNT 0.1 /CUMM (0.0-0.7); ABSOLUTE GRANULOCYTE CT 1.4 /CUMM (1.4-6.5); ABSOLUTE LYMPH COUNT 4.6 /CUMM (1.2-3.4); ABSOLUTE MONOCYTE COUNT 0.5 /CUMM (0.10-0.60); BASOPHIL % 0.3 % (0.0-2.0); EOSINOPHIL % 1.3 % (0-5); GRANULOCYTE % 20.9 % (42.2-75.2); HEMATOCRIT 38.6 % (37-47); MEAN CORPUSCULAR HGB 31.5 PG (27.0-31.0); MEAN CORPUSCULAR HGB CONC 33.9 G/DL (33.0-37.0); MEAN CORPUSCULAR VOLUME 92.8 FL (81.0-99.0); RBC DISTRIBUTION WIDTH 14.1 % (11.5-14.5); RED BLOOD CELL CT 4.16 /CUMM (4.20-5.40); WHITE BLOOD CELL COUNT 6.6 /CUMM (4.8-10.8)
--- NOTE | 2018-04-11 10:02 | PN- Att Addend ---
Attending Addendum Attending Brief Note Patient seen and examined. Agree with resident's note. 27-year-old female past medical history of untreated hepatitis C recently diagnosed per patient, history of heroin use who is here with complaints of right upper quadrant abdominal pain and jaundice. She has a bili of 2, alk phos of 219 and her AST and ALT have come down since admission. Her HIV panel was negative, hepatitis panel is pending and U tox is negative. She has this complex pericholecystic fluid but she has no fever, no white count and I doubt this is cholecystitis. This is more likely a ?viral hepatitis- obviously the possibility of choledocholithiasis always has to be entertained although she has no biliary dilatation on ultrasound. She is going for an MRI of the abdomen, GI consult is pending and will follow up.
[2018-04-11 10:05] LABS: PLATELET COUNT 92 /CUMM (130-400)
--- NOTE | 2018-04-11 13:08 | Cons- Gastroenterology ---
General Information and HPI Consulting Request Date of Consult: 04/11/18 Requested By: Gaby Perez M.D. Reason for Consult: Abdominal pain Hyperbilirubinemia/transaminitis Allergies/Medications Allergies: Coded Allergies: No Known Allergies (04/08/17) Home Med List: Ibuprofen 600 MG TABLET 1 TAB PO ONCE PAIN/INFLAMMATION (Reported) with food Current Medications: Current Medications Sig/Gabriel Start time Last Medication Dose Route Stop Time Status Admin Acetaminophen 650 MG Q6P PRN 04/10 2215 AC 04/11 PO 0256 Acetaminophen 1,000 MG Q6P PRN 04/10 2215 AC IV Alprazolam 0.5 MG ONCE ONE 04/11 1145 CAN PO 04/11 1146 Bisacodyl 10 MG ONCE ONE 04/11 1200 DC IA 04/11 1201 Ketorolac 30 MG ONCE ONE 04/10 2230 DC 04/10 Tromethamine IV 04/10 2231 2225 Ketorolac 0 .STK-MED ONE 04/10 2220 DC Tromethamine .ROUTE Lorazepam 0 .STK-MED ONE 04/11 1150 DC .ROUTE Lorazepam 0.5 MG ONCE ONE 04/11 1145 DC 04/11 IV 04/11 1146 1151 Ondansetron HCl 4 MG Q6P PRN 04/10 2300 AC 04/11 IV 0256 Ondansetron HCl 0 .STK-MED ONE 04/10 1837 DC .ROUTE Ondansetron HCl 4 MG ONCE ONE 04/10 1830 DC 04/10 IV 04/10 1831 1850 Sodium Chloride 1,000 ML Q13H 04/11 0045 AC 04/11 IV 04/12 0244 1158 Sodium Chloride 1,000 ML BOLUS ONE 04/10 1830 DC 04/10 IV 04/10 1929 1850 Trimethobenzamide HCl 200 MG 4 TIMES/DAY PRN 04/10 2300 AC IM Past History Travel History Traveled to [place] past 21 day No Medical History Blood Transfusion Hx: No Neurological: NONE EENT: NONE Cardiovascular: NONE Respiratory: NONE Gastrointestinal: NONE Hepatic: HEP C Renal: NONE Musculoskeletal: NONE Psychiatric: anxiety, depression, insomnia Endocrine: NONE Surgical History Surgical History: Psychosocial History Where Do You Live? Home Services at Home: None Smoking Status: Current Everyday Smoker ETOH Use: denies use Illicit Drug Use: denies illicit drug use, Heroin abuse Employment History Employment: Unemployed Exam & Diagnostic Data Vital Signs and I&O Vital Signs Date Time Temp Pulse Resp B/P B/P Pulse O2 O2 Flow FiO2 Mean Ox Delivery Rate 04/11 0737 98.1 67 18 105/60 99 04/10 2358 97.8 76 20 100/63 100 04/10 2332 98.3 74 16 108/62 99 Room Air 04/10 2126 98.1 78 16 111/58 99 Room Air 04/10 1825 97.7 88 18 110/78 98 Room Air 04/10 1440 97.6 88 20 122/87 98 Room Air Intake & Output 04/11 0400 04/10 1600 04/10 0400 04/09 0400 Intake Total 600 1000 Output Total 100 Balance 500 1000 Intake, IV 600 1000 Intake, Oral 0 Output, Urine 100 Patient 148 lb 148 lb Weight Weight Reported by Patient Reported by Patient Measurement Method Physical Exam: Jovial, laughing, conversant. Results Pertinent Lab Results: Laboratory Tests 04/11 04/11 0700 0042 Chemistry Sodium (137 - 145 mmol/L) 140 Potassium (3.5 - 5.1 mmol/L) 4.2 Chloride (98 - 107 mmol/L) 108 H Carbon Dioxide (22 - 30 mmol/L) 24 Anion Gap (5 - 16) 8 BUN (7 - 17 mg/dL) 8 Creatinine (0.5 - 1.0 mg/dL) 0.6 Estimated GFR (>60 ml/min) > 60 BUN/Creatinine Ratio (7 - 25 %) 13.3 Total Bilirubin (0.2 - 1.3 mg/dL) 2.0 H Direct Bilirubin (< 0.4 mg/dL) 1.7 H AST (14 - 36 U/L) 372 H ALT (9 - 52 U/L) 1284 H Alkaline Phosphatase (<127 U/L) 219 H Total Protein (6.3 - 8.2 g/dL) 5.4 L Albumin (3.5 - 5.0 g/dL) 3.0 L Triglycerides (<150 mg/dL) 119 Cholesterol (<200 MG/DL) 85 LDL Cholesterol, Calc (65 - 129 mg/dL) 42 L HDL Cholesterol (40 - 60 mg/dL) 20 L Cholesterol/HDL Ratio (0.00 - 4.23 %) 4 Hematology CBC w Diff MAN DIFF ORDERED WBC (4.8 - 10.8 /CUMM) 6.6 RBC (4.20 - 5.40 /CUMM) 4.16 L Hgb (12.0 - 16.0 G/DL) 13.1 Hct (37 - 47 %) 38.6 MCV (81.0 - 99.0 FL) 92.8 MCH (27.0 - 31.0 PG) 31.5 H MCHC (33.0 - 37.0 G/DL) 33.9 RDW (11.5 - 14.5 %) 14.1 Plt Count (130 - 400 /CUMM) 92 L MPV (7.4 - 10.4 FL) 9.0 Gran % (42.2 - 75.2 %) 20.9 L Lymphocytes % (20.5 - 51.1 %) 70.1 H Monocytes % (1.7 - 9.3 %) 7.4 Eosinophils % (0 - 5 %) 1.3 Basophils % (0.0 - 2.0 %) 0.3 Absolute Granulocytes (1.4 - 6.5 /CUMM) 1.4 Absolute Lymphocytes (1.2 - 3.4 /CUMM) 4.6 H Absolute Monocytes (0.10 - 0.60 /CUMM) 0.5 Absolute Eosinophils (0.0 - 0.7 /CUMM) 0.1 Absolute Basophils (0.0 - 0.2 /CUMM) 0 Platelet Estimate (ADEQUATE) DECREASED Normocytic RBCs VERIFIED Normochromic RBCs VERIFIED Serology HCV RNA (PCR) IUs/ml Pending HCV RNA PCR log IUs/ml Pending Toxicology Urine Opiates Screen (>2000 NG/ML) < 100 Methadone Screen (>300 NG/ML) < 40 Barbiturate Screen (>200 NG/ML) < 60 Ur Phencyclidine Scrn (>25 NG/ML) < 6.00 Amphetamines Screen (>1000 NG/ML) < 100 U Benzodiazepines Scrn (>200 NG/ML) < 85 Urine Cocaine Screen (>300 NG/ML) < 50 Urine Cannabis Screen (>50 NG/ML) < 5.00 04/10 04/10 1747 1526 Chemistry Sodium (137 - 145 mmol/L) 139 Potassium (3.5 - 5.1 mmol/L) 4.2 Chloride (98 - 107 mmol/L) 101 Carbon Dioxide (22 - 30 mmol/L) 31 H Anion Gap (5 - 16) 7 BUN (7 - 17 mg/dL) 12 Creatinine (0.5 - 1.0 mg/dL) 0.7 Estimated GFR (>60 ml/min) > 60 BUN/Creatinine Ratio (7 - 25 %) 17.1 Glucose (65 - 99 mg/dL) 108 H Calcium (8.4 - 10.2 mg/dL) 8.8 Total Bilirubin (0.2 - 1.3 mg/dL) 2.7 H AST (14 - 36 U/L) 716 H ALT (9 - 52 U/L) 1796 H Alkaline Phosphatase (<127 U/L) 244 H Total Protein (6.3 - 8.2 g/dL) 6.4 Albumin (3.5 - 5.0 g/dL) 3.6 Globulin (1.9 - 4.2 gm/dL) 2.8 Albumin/Globulin Ratio (1.1 - 2.2 %) 1.3 Lipase (23 - 300 U/L) 48 Coagulation PT (9.4 - 12.5 SEC) 13.5 H INR (0.90 - 1.19) 1.24 H APTT (25 - 37 SEC) 37 Hematology CBC w Diff MAN DIFF ORDERED WBC (4.8 - 10.8 /CUMM) 7.9 RBC (4.20 - 5.40 /CUMM) 4.65 Hgb (12.0 - 16.0 G/DL) 14.6 Hct (37 - 47 %) 43.1 MCV (81.0 - 99.0 FL) 92.8 MCH (27.0 - 31.0 PG) 31.5 H MCHC (33.0 - 37.0 G/DL) 33.9 RDW (11.5 - 14.5 %) 13.6 Plt Count (130 - 400 /CUMM) 99 L MPV (7.4 - 10.4 FL) 8.4 Gran % (42.2 - 75.2 %) 26.5 L Lymphocytes % (20.5 - 51.1 %) 65.7 H Monocytes % (1.7 - 9.3 %) 6.5 Eosinophils % (0 - 5 %) 0.9 Basophils % (0.0 - 2.0 %) 0.4 Absolute Granulocytes (1.4 - 6.5 /CUMM) 2.1 Absolute Lymphocytes (1.2 - 3.4 /CUMM) 5.2 H Absolute Monocytes (0.10 - 0.60 /CUMM) 0.5 Absolute Eosinophils (0.0 - 0.7 /CUMM) 0.1 Absolute Basophils (0.0 - 0.2 /CUMM) 0 Platelet Estimate (ADEQUATE) DECREASED Normocytic RBCs VERIFIED Normochromic RBCs VERIFIED Serology Hepatitis A IgM Ab (NONREACTIVE) NONREACTIVE Hep Bs Antigen (NONREACTIVE) NONREACTIVE Hep B Core IgM Ab Conf (NONREACTIVE) NONREACTIVE Hepatitis C Antibody (NONREACTIVE) REACTIVE H HIV 1&2 Ab Western Blot (NONREACTIVE) NONREACTIVE Toxicology Serum Alcohol (<10 MG/DL) < 10.0 Urines Urine Color (YEL,AMB,STR) YEL Urine Clarity (CLEAR) HAZY H Urine pH (5.0 - 8.0) 7.0 Ur Specific [place] (1.001 - 1.035) 1.015 Urine Protein (NEG,<30 MG/DL) NEG Urine Ketones (NEG) NEG Urine Nitrite (NEG) NEG Urine Bilirubin (NEG) POS@ICTO H Urine Urobilinogen (0.1 - 1.0 EU/dl) >=8.0 H Ur Leukocyte Esterase (NEG) SMALL H Ur Microscopic SEDIMENT EXAMINED Urine WBC (0 - 2 /HPF) 1-3 H Ur Epithelial Cells (NONE,FEW) MANY H Urine Bacteria (NEG/NONE) MOD H Urine Mucus (FEW,NONE) FEW Urine Hemoglobin (NEG) NEG Urine Glucose (N MG/DL) NEG Imaging/Other Studies: Ultrasound of the abdomen: IMPRESSION: * There is significant gallbladder wall thickening and there is probable large volume complex pericholecystic fluid. No definite calculi are identified. Findings may still be secondary to cholecystitis, hepatitis given the patient's history of elevated AST/ALT, hypoalbuminemia, or gallbladder malignancy. HIDA scan recommended if indicated. * There is a nonspecific enlarged 2 cm lymph node adjacent to the pancreatic head. Assessment/Plan Assessment/Recommendations: The patient presented with nausea and malaise, and was found to have elevated liver function tests. There was subsequent right upper quadrant pain and infracostal tenderness, but this is very likely an abdominal wall/muscular strain. There is no ductal dilatation on ultrasound to suggest an obstructive process, and no clear gallstones (although the gallbladder was contracted). The presentation is more consistent with an acute hepatitis than a biliary process, and this may be viral/infectious, autoimmune, metabolic, etc. There is no encephalopathy or significant coagulopathy. Of interest, the patient had hepatitis C diagnosed at [facility] in approximately September 2016, but was told that she cleared it by their infectious disease specialist in March 2017. She apparently had hepatomegaly at that time, but none is described on current ultrasound, although it is evident by examination. Recommendations * Await MRI/MRCP to be performed today * Follow-up CBC, INR, LFTs tomorrow. Await result of hepatitis C RNA. * If MRCP negative for cholecystitis/choledocholithiasis, check antinuclear antibody, smooth muscle antibody, ceruloplasmin, Monospot, EBV titer, Lyme titer , rickettsial panel (given thrombocytopenia). * If MRCP negative for cholecystitis/choledocholithiasis, begin regular diet. Consult Acknowledgment - Thank you for your consult request.
[2018-04-11 14:30] VITALS: BP 98/66
--- NOTE | 2018-04-11 16:27 | MRI REPORT ---
EXAMINATION: MR ABDOMEN WITHOUT CONTRAST CLINICAL INFORMATION: Abdominal pain. Evaluate for cholecystitis. COMPARISON: Limited abdominal ultrasound from 04/10/2018. TECHNIQUE: Noncontrast imaging of the abdomen was performed using magnetic resonance cholangiopancreatography protocol on the 1.5 Camille magnet. FINDINGS: LUNG BASES: Unremarkable. No basilar consolidation or pleural effusion. LIVER, GALLBLADDER, AND BILIARY TREE: There is hepatomegaly with right hepatic lobe measuring approximately 20 cm in craniocaudal dimension. The liver parenchyma has normal signal intensity on these noncontrast images. No evidence of hepatic steatosis or cirrhosis. There is periportal edema, and the gallbladder wall is diffusely edematous, as well. No evidence of cholelithiasis. The common bile duct is normal; it measures up to 0.4 cm diameter. No evidence of common duct stricture or choledocholithiasis. PANCREAS: Normal. No pancreatic divisum, focal pancreatic lesion or peripancreatic edema. SPLEEN: Mild splenomegaly. Spleen measures 13 cm in AP dimension. ADRENAL GLANDS: Normal. KIDNEYS: Normal. BOWEL AND PERITONEUM: Stomach is unremarkable. The visualized loops of bowel are normal in caliber. No evidence of inflammation or obstruction along the visualized gastrointestinal tract. A trace amount of free fluid is seen inferior to the right hepatic lobe. ABDOMINAL WALL: Unremarkable. LYMPH NODES: No pathologic sized lymph nodes in the abdomen. VASCULAR: Abdominal aorta is normal in caliber. Inferior vena cava is unremarkable. SKELETAL: The visualized lower thoracic and lumbar vertebra have normal height and alignment. The bone marrow signal is normal. The intervertebral discs are normal. IMPRESSION: - No evidence of cholelithiasis, choledocholithiasis or biliary tract obstruction. - Acute hepatitis is suspected. Diffuse edema of the gallbladder wall is nonspecific. Although edema can be a manifestation of cholecystitis, no gallstones are present, and gallbladder wall edema can be caused by hepatitis. Periportal edema is present, as well, which can be a feature of hepatitis. There is mild hepatosplenomegaly.
[2018-04-11 22:04] VITALS: BP 121/45
[2018-04-12 06:25] VITALS: BP 104/72
--- NOTE | 2018-04-12 08:35 | PN- Housestaff ---
Rhonda Millan 04/12/18 0835: Subjective Follow-up For: RUQ abdominal pain ?Hepatitis Subjective: Patient was seen and examined at bedside. She was dressed up and sititng in the chair comfortably. She has been tolerating her diet well. She still complains of pain in RUQ of the abodomen worse with breathing. She also complains she has been feeling nauseous and fatigued lately. The patient wanted to know about her discharge plan and lab results. She was duly informed about the same and was counselled to follow up with gastroenterology as an outpatient. Review of Systems Constitutional: Reports: malaise, weakness. Denies: chills, diaphoresis, fever. EENTM: Denies: visual changes, hearing changes, nasal congestion, throat pain. Cardiovascular: Denies: chest pain, edema, orthopena, palpitations, peripheral edema. Respiratory: Denies: cough, hemoptysis, orthopnea, short of breath. Gastrointestinal: Reports: abdominal pain, bloating, nausea. Denies: constipation, diarrhea, bloody stool, changes in stool. Genitourinary: Denies: dysuria, frequency, pain. Musculoskeletal: Reports: muscle pain, muscle stiffness. Denies: back pain, gout, joint pain, joint swelling. Skin: Denies: dryness, erythema, jaundice, lesions. Neurological/Psychological: Denies: anxiety, confusion, depressed, emotional problems, headache, numbness, paresthesia. Objective Last 24 Hrs of Vital Signs/I&O Vital Signs Date Time Temp Pulse Resp B/P B/P Pulse O2 O2 Flow FiO2 Mean Ox Delivery Rate 04/12 0625 97.8 69 20 104/72 98 04/11 2204 98.1 78 18 121/45 98 04/11 1430 98.2 62 20 98/66 100 Room Air Intake & Output 04/12 1600 04/12 0800 04/12 0000 Intake Total 300 Output Total Balance 300 Intake, IV 300 Physical Exam General Appearance: Alert, Oriented X3, Cooperative, No Acute Distress Skin: No Rashes Neck: Supple Cardiovascular: Regular Rate, Normal S1, Normal S2, No Murmurs Lungs: Clear to Auscultation Abdomen: Normal Bowel Sounds, tenderness in the RUQ with slight guarding, Rosales sign negative Extremities: No Edema, Normal Pulses Assessment/Plan Assessment: Patient is a 27-year-old female with past medical history significant for untreated hepatitis C (inactive), 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 On examination, tenderness is elicited in the RUQ with minimal guarding and neagative Rosales's sign. The patient has been afebrile. Labs: WBC:5.6, Platelets : 113, Total bilirubin: 1.4, Direct bilirubin:0.9, AST:200 ALT:944, INR:1.15 antinuclear antibody, smooth muscle antibody, ceruloplasmin, Monospot, EBV titer , Lyme titer, rickettsial panel pending Acute RUQ pain -USG - Large pericholecystic fluid with gall bladder thickening -MRCP negative -iv fluids discontinued -Iv Zofran PRN -Patient is tolerating diet well -Hold abx given no white count, stable vitals - if decompensates low threshold to start -LFTs improving -HIV/hepatitis panel, Hep C reactive -GI input appreciated. Will follow recommendations H/o IV drug abuse Low AG, Thrombocytopenia. Obtain Hep C viral load Consider reactivation as a potential diagnosis Patient reports being clean and had 2 kids. Constipation Since apr 06. -dulcolax supp -miralax, dulcolax, sennaS The patient could be discharged later in the day today following GI recommendations DVT prophylaxis ALPS Problem List: 1. Constipation 2. Cholecystitis 3. Elevated LFTs 4. RUQ abdominal pain 5. Transaminitis Pain Ratin Pain Location: RUQ Pain Goal: Remain pain free Pain Plan: pathway Tomorrow's Labs & Rationales: Follow gi recommendation Gaby Perez MD 04/12/18 0953: Attending MD Review Statement Attending Statement Attending MD Statement: examined this patient, discuss w/resident/PA/LICENSING COORDINATOR, agreed w/resident/PA/LICENSING COORDINATOR, reviewed EMR data (avail), discussed with nursing, reviewed images Attending Assessment/Plan: Overall patient is feeling slightly better. MRCP reviewed and there is no choledocholithiasis or cholelithiasis and no evidence of cholecystitis. I think this is all probably or hepatitis and will need to follow the numbers. We will follow her Bili and her enzymes closely. She is not encephalopathic or coagulopathic at this point. She is tolerating the diet.
[2018-04-12 09:22] LABS: ABSOLUTE BASOPHIL COUNT 0 /CUMM (0.0-0.2); ABSOLUTE EOSINOPHIL COUNT 0.1 /CUMM (0.0-0.7); ABSOLUTE GRANULOCYTE CT 2.3 /CUMM (1.4-6.5); ABSOLUTE LYMPH COUNT 2.9 /CUMM (1.2-3.4); ABSOLUTE MONOCYTE COUNT 0.4 /CUMM (0.10-0.60); BASOPHIL % 0.3 % (0.0-2.0); EOSINOPHIL % 1.5 % (0-5); HEMATOCRIT 40.9 % (37-47); MEAN CORPUSCULAR HGB 31.4 PG (27.0-31.0); MEAN CORPUSCULAR HGB CONC 33.9 G/DL (33.0-37.0); MEAN CORPUSCULAR VOLUME 92.8 FL (81.0-99.0); MEAN PLATELET VOLUME 8.8 FL (7.4-10.4); PLATELET COUNT 113 /CUMM (130-400); RBC DISTRIBUTION WIDTH 13.8 % (11.5-14.5); RED BLOOD CELL CT 4.41 /CUMM (4.20-5.40); WHITE BLOOD CELL COUNT 5.6 /CUMM (4.8-10.8)
[2018-04-12 09:24] LABS: PT 12.5 SEC (9.4-12.5)
[2018-04-12 09:42] LABS: GRANULOCYTE % 40.4 % (42.2-75.2)
--- NOTE | 2018-04-12 11:15 | PN- General Surgery ---
Surgical Brief Attending Note Brief Attending Note: no role for cholecystectomy
[2018-04-12 14:27] VITALS: BP 100/68
--- NOTE | 2018-04-12 14:49 | PN- Gastroenterology ---
Assessment/Plan GI Assessment/Recommendations: The patient presents with acute icteric hepatitis, likely a relapse of or newly reacquired hepatitis C (RNA is positive). Less likely, this is another acute hepatotoxic/hepatonecrotic process superimposed on chronic hepatitis C. She is clinically much improved, and her liver function tests/bilirubin are improving. There is no coagulopathy, nor encephalopathy. Thrombocytopenia persists. Recommendations * The patient may be discharged. I will follow her in the office setting. I will need to obtain her records from [facility]. * Please arrange for CBC, LFTs at end of this week * Await results of antinuclear antibody, smooth muscle antibody, ceruloplasmin, Monospot, EBV titer, Lyme titer, rickettsial panel (given thrombocytopenia). Thank you very much for having allowed GI participation in this interesting case. Please call as necessary. Subjective Subjective: Pain improved. No nausea, vomiting, fever. Tolerating diet. Objective Vital Signs and I&Os Vital Signs Date Time Temp Pulse Resp B/P B/P Pulse O2 O2 Flow FiO2 Mean Ox Delivery Rate 04/12 1427 98.4 83 18 100/68 96 Room Air 04/12 0625 97.8 69 20 104/72 98 04/11 2204 98.1 78 18 121/45 98 Intake & Output 04/12 1600 04/12 0400 04/11 1600 04/11 0400 04/10 1600 04/10 0400 Intake Total 276 283 3659 1000 Output Total 100 Balance 556 915 3878 1000 Intake, IV 300 1175 1000 Intake, Oral 740 0 Number 0 Bowel Movements Output, Urine 100 Patient 148 lb 148 lb Weight Weight Reported by Patient Reported by Patient Measurement Method Physical Exam: Alert and oriented. No asterixis. No scleral icterus. No adenopathy. Abdomen soft, nondistended, mild right upper quadrant tenderness, improved. No edema. No petechiae. Current Medications: Current Medications Sig/Gabriel Start time Last Medication Dose Route Stop Time Status Admin Acetaminophen 650 MG Q6P PRN 04/10 2215 AC 04/11 PO 0256 Acetaminophen 1,000 MG Q6P PRN 04/10 221 AC IV Dextrose/Sodium 1,000 ML Q13H 04/11 1445 DC 04/11 Chloride IV 1500 Ondansetron HCl 4 MG Q6P PRN 04/10 2300 AC 04/11 IV 0256 Trimethobenzamide HCl 200 MG 4 TIMES/DAY PRN 04/10 2300 AC IM Results Pertinent Lab Results: Laboratory Tests 04/12 04/12 0804 0804 Chemistry Sodium (137 - 145 mmol/L) 139 Potassium (3.5 - 5.1 mmol/L) 4.2 Chloride (98 - 107 mmol/L) 107 Carbon Dioxide (22 - 30 mmol/L) 25 Anion Gap (5 - 16) 7 BUN (7 - 17 mg/dL) 10 Creatinine (0.5 - 1.0 mg/dL) 0.6 Estimated GFR (>60 ml/min) > 60 BUN/Creatinine Ratio (7 - 25 %) 16.7 Total Bilirubin (0.2 - 1.3 mg/dL) 1.4 H Direct Bilirubin (< 0.4 mg/dL) 0.9 H AST (14 - 36 U/L) 200 H ALT (9 - 52 U/L) 944 H Alkaline Phosphatase (<127 U/L) 226 H Total Protein (6.3 - 8.2 g/dL) 6.2 L Albumin (3.5 - 5.0 g/dL) 3.5 Ceruloplasmin Pending Coagulation PT (9.4 - 12.5 SEC) 12.5 INR (0.90 - 1.19) 1.15 Hematology CBC w Diff NO MAN DIFF REQ WBC (4.8 - 10.8 /CUMM) 5.6 RBC (4.20 - 5.40 /CUMM) 4.41 Hgb (12.0 - 16.0 G/DL) 13.9 Hct (37 - 47 %) 40.9 MCV (81.0 - 99.0 FL) 92.8 MCH (27.0 - 31.0 PG) 31.4 H MCHC (33.0 - 37.0 G/DL) 33.9 RDW (11.5 - 14.5 %) 13.8 Plt Count (130 - 400 /CUMM) 113 L MPV (7.4 - 10.4 FL) 8.8 Gran % (42.2 - 75.2 %) 40.4 L Lymphocytes % (20.5 - 51.1 %) 51.2 H Monocytes % (1.7 - 9.3 %) 6.6 Eosinophils % (0 - 5 %) 1.5 Basophils % (0.0 - 2.0 %) 0.3 Absolute Granulocytes (1.4 - 6.5 /CUMM) 2.3 Absolute Lymphocytes (1.2 - 3.4 /CUMM) 2.9 Absolute Monocytes (0.10 - 0.60 /CUMM) 0.4 Absolute Eosinophils (0.0 - 0.7 /CUMM) 0.1 Absolute Basophils (0.0 - 0.2 /CUMM) 0 Immunology ELOISA Titer Pending Anti-Nuclear Antibody Pending Miscellaneous Ref Lab Test Result Pending Serology Lyme Disease Antibody Pending EBV Capsid Ag IgG Ab Pending EBV Capsid Ag IgM Ab Pending EBV Nuclear Ag IgG Ab Pending EBV Interpretation Pending Infectious Lares Titer Pending 04/11 2235 Urines Urine Color (YEL,AMB,STR) YEL Urine Clarity (CLEAR) CLEAR Urine pH (5.0 - 8.0) 6.5 Ur Specific Withams (1.001 - 1.035) <= 1.005 Urine Protein (NEG,<30 MG/DL) NEG Urine Ketones (NEG) NEG Urine Nitrite (NEG) NEG Urine Bilirubin (NEG) NEG Urine Urobilinogen (0.1 - 1.0 EU/dl) 2.0 H Ur Leukocyte Esterase (NEG) NEG Ur Microscopic EXAM NOT REQUIRED Urine Hemoglobin (NEG) NEG Urine Glucose (N MG/DL) 100 H 04/11 04/11 0700 0042 Chemistry Sodium (137 - 145 mmol/L) 140 Potassium (3.5 - 5.1 mmol/L) 4.2 Chloride (98 - 107 mmol/L) 108 H Carbon Dioxide (22 - 30 mmol/L) 24 Anion Gap (5 - 16) 8 BUN (7 - 17 mg/dL) 8 Creatinine (0.5 - 1.0 mg/dL) 0.6 Estimated GFR (>60 ml/min) > 60 BUN/Creatinine Ratio (7 - 25 %) 13.3 Total Bilirubin (0.2 - 1.3 mg/dL) 2.0 H Direct Bilirubin (< 0.4 mg/dL) 1.7 H AST (14 - 36 U/L) 372 H ALT (9 - 52 U/L) 1284 H Alkaline Phosphatase (<127 U/L) 219 H Total Protein (6.3 - 8.2 g/dL) 5.4 L Albumin (3.5 - 5.0 g/dL) 3.0 L Triglycerides (<150 mg/dL) 119 Cholesterol (<200 MG/DL) 85 LDL Cholesterol, Calc (65 - 129 mg/dL) 42 L HDL Cholesterol (40 - 60 mg/dL) 20 L Cholesterol/HDL Ratio (0.00 - 4.23 %) 4 Hematology CBC w Diff MAN DIFF ORDERED WBC (4.8 - 10.8 /CUMM) 6.6 RBC (4.20 - 5.40 /CUMM) 4.16 L Hgb (12.0 - 16.0 G/DL) 13.1 Hct (37 - 47 %) 38.6 MCV (81.0 - 99.0 FL) 92.8 MCH (27.0 - 31.0 PG) 31.5 H MCHC (33.0 - 37.0 G/DL) 33.9 RDW (11.5 - 14.5 %) 14.1 Plt Count (130 - 400 /CUMM) 92 L MPV (7.4 - 10.4 FL) 9.0 Gran % (42.2 - 75.2 %) 20.9 L Lymphocytes % (20.5 - 51.1 %) 70.1 H Monocytes % (1.7 - 9.3 %) 7.4 Eosinophils % (0 - 5 %) 1.3 Basophils % (0.0 - 2.0 %) 0.3 Absolute Granulocytes (1.4 - 6.5 /CUMM) 1.4 Absolute Lymphocytes (1.2 - 3.4 /CUMM) 4.6 H Absolute Monocytes (0.10 - 0.60 /CUMM) 0.5 Absolute Eosinophils (0.0 - 0.7 /CUMM) 0.1 Absolute Basophils (0.0 - 0.2 /CUMM) 0 Platelet Estimate (ADEQUATE) DECREASED Normocytic RBCs VERIFIED Normochromic RBCs VERIFIED Serology HCV RNA (PCR) IUs/ml (NOT DETECTED IU/mL) 19422 H HCV RNA PCR log IUs/ml (NOT DETECTED) 4.61 H Toxicology Urine Opiates Screen (>2000 NG/ML) < 100 Methadone Screen (>300 NG/ML) < 40 Barbiturate Screen (>200 NG/ML) < 60 Ur Phencyclidine Scrn (>25 NG/ML) < 6.00 Amphetamines Screen (>1000 NG/ML) < 100 U Benzodiazepines Scrn (>200 NG/ML) < 85 Urine Cocaine Screen (>300 NG/ML) < 50 Urine Cannabis Screen (>50 NG/ML) < 5.00 04/10 04/10 1747 1526 Chemistry Sodium (137 - 145 mmol/L) 139 Potassium (3.5 - 5.1 mmol/L) 4.2 Chloride (98 - 107 mmol/L) 101 Carbon Dioxide (22 - 30 mmol/L) 31 H Anion Gap (5 - 16) 7 BUN (7 - 17 mg/dL) 12 Creatinine (0.5 - 1.0 mg/dL) 0.7 Estimated GFR (>60 ml/min) > 60 BUN/Creatinine Ratio (7 - 25 %) 17.1 Glucose (65 - 99 mg/dL) 108 H Calcium (8.4 - 10.2 mg/dL) 8.8 Total Bilirubin (0.2 - 1.3 mg/dL) 2.7 H AST (14 - 36 U/L) 716 H ALT (9 - 52 U/L) 1796 H Alkaline Phosphatase (<127 U/L) 244 H Total Protein (6.3 - 8.2 g/dL) 6.4 Albumin (3.5 - 5.0 g/dL) 3.6 Globulin (1.9 - 4.2 gm/dL) 2.8 Albumin/Globulin Ratio (1.1 - 2.2 %) 1.3 Lipase (23 - 300 U/L) 48 Coagulation PT (9.4 - 12.5 SEC) 13.5 H INR (0.90 - 1.19) 1.24 H APTT (25 - 37 SEC) 37 Hematology CBC w Diff MAN DIFF ORDERED WBC (4.8 - 10.8 /CUMM) 7.9 RBC (4.20 - 5.40 /CUMM) 4.65 Hgb (12.0 - 16.0 G/DL) 14.6 Hct (37 - 47 %) 43.1 MCV (81.0 - 99.0 FL) 92.8 MCH (27.0 - 31.0 PG) 31.5 H MCHC (33.0 - 37.0 G/DL) 33.9 RDW (11.5 - 14.5 %) 13.6 Plt Count (130 - 400 /CUMM) 99 L MPV (7.4 - 10.4 FL) 8.4 Gran % (42.2 - 75.2 %) 26.5 L Lymphocytes % (20.5 - 51.1 %) 65.7 H Monocytes % (1.7 - 9.3 %) 6.5 Eosinophils % (0 - 5 %) 0.9 Basophils % (0.0 - 2.0 %) 0.4 Absolute Granulocytes (1.4 - 6.5 /CUMM) 2.1 Absolute Lymphocytes (1.2 - 3.4 /CUMM) 5.2 H Absolute Monocytes (0.10 - 0.60 /CUMM) 0.5 Absolute Eosinophils (0.0 - 0.7 /CUMM) 0.1 Absolute Basophils (0.0 - 0.2 /CUMM) 0 Platelet Estimate (ADEQUATE) DECREASED Normocytic RBCs VERIFIED Normochromic RBCs VERIFIED Serology Hepatitis A IgM Ab (NONREACTIVE) NONREACTIVE Hep Bs Antigen (NONREACTIVE) NONREACTIVE Hep B Core IgM Ab Conf (NONREACTIVE) NONREACTIVE Hepatitis C Antibody (NONREACTIVE) REACTIVE H HIV 1&2 Ab Western Blot (NONREACTIVE) NONREACTIVE Toxicology Serum Alcohol (<10 MG/DL) < 10.0 Urines Urine Color (YEL,AMB,STR) YEL Urine Clarity (CLEAR) HAZY H Urine pH (5.0 - 8.0) 7.0 Ur Specific Withams (1.001 - 1.035) 1.015 Urine Protein (NEG,<30 MG/DL) NEG Urine Ketones (NEG) NEG Urine Nitrite (NEG) NEG Urine Bilirubin (NEG) POS@ICTO H Urine Urobilinogen (0.1 - 1.0 EU/dl) >=8.0 H Ur Leukocyte Esterase (NEG) SMALL H Ur Microscopic SEDIMENT EXAMINED Urine WBC (0 - 2 /HPF) 1-3 H Ur Epithelial Cells (NONE,FEW) MANY H Urine Bacteria (NEG/NONE) MOD H Urine Mucus (FEW,NONE) FEW Urine Hemoglobin (NEG) NEG Urine Glucose (N MG/DL) NEG Imaging/Other Studies: MRCP: No cholelithiasis/choledocholithiasis, and evidence of hepatosplenomegaly and hepatitis.
[2018-04-12] MEDS ORDERED: ZOFRAN4 M2 PO (17:02)
--- NOTE | 2018-04-12 17:05 | Patient Discharge Instructions ---
Discharge Instructions General Discharge Information You were seen/treated for: RUQ abdominal pain Abnormal Liver Function tests Special Instructions: 1. Please see your PCP within 1 week of discharge 2. Please schedule an appointment with Dr. Vargas within a week of your discharge Diet Continue normal diet: Yes Acute Coronary Syndrome Inclusion Criteria At DC or during hospital stay patient has or had the following: ACS DIAGNOSIS No Discharge Core Measures Meds if any: Prescribed or Continued at Discharge Meds if any: NOT Prescribed or Continued at Discharge Congestive Heart Failure Inclusion Criteria At DC or during hospital stay patient has or had the following: CHF DIAGNOSIS No Discharge Core Measures Meds if any: Prescribed or Continued at Discharge Meds if any: NOT Prescribed or Continued at Discharge Cerebrovascular accident Inclusion Criteria At DC or during hospital stay patient has or had the following: CVA/TIA Diagnosis No Discharge Core Measures Meds if any: Prescribed or Continued at Discharge Meds if any: NOT Prescribed or Continued at Discharge Venous thromboembolism Inclusion Criteria VTE Diagnosis No VTE Type NONE VTE Confirmed by (Test) NONE Discharge Core Measures - Per Current guidelines, there needs to be overlap - treatment for the first 5 days of Warfarin therapy. - If discharged on Warfarin prior to 5 days of - overlap therapy, the patient will need to be - assessed for post discharge needs including - *Post discharge parental anticoagulation - *Warfarin and/or parental anticoagulation education - *Follow up date to check INR post discharge At least 5 days overlap therapy as Inpatient No Meds if any: Prescribed or Continued at Discharge Note: Overlap Therapy is Warfarin and Anticoagulant Meds if any: NOT Prescribed or Continued at Discharge
--- NOTE | 2018-04-12 17:37 | Discharge Summary ---
Visit Information Visit Dates Admission Date: 04/10/18 Hospital Course Course Attending Physician: George Mccann MD Primary Care Physician: Sapna Kumar APRN Consulting Request: Consulting Specialty: Gastroenterology Consulting Physician: Reason for Consult: hepatitis Allergies: Coded Allergies: No Known Allergies (04/08/17) Discharge Instructions General Discharge Information Code Status: Full Code Patient's Diet: TOLERATED Patient's Activity: TOLERATED Medications at Discharge Discharge Medications: Stop taking the following medications: Ibuprofen (Ibuprofen) 600 MG TABLET ORAL GIVE ONCE Start taking the following new medications: Ondansetron HCl (Zofran) 4 MG TABLET 1 Tablet ORAL THREE TIMES DAILY as needed for nausea Qty = 30 No Refills
== END 2018-04-12 18:05 | DRG 251 ==
LOC: ERH 14:30 → 2NB 22:01 → ERHI 22:01 → 2NB 22:01 → ENRESERV 23:17 → 2NB 04-11 00:08
PROVIDERS: Internal Medicine; Physician Assistant Medical; Student in an Organized Health Care Education/Training Program
DX: R10.11 Right upper quadrant pain (principal); F11.11 Opioid abuse, in remission; F41.9 Anxiety disorder, unspecified; F17.210 Nicotine dependence, cigarettes, uncomplicated; R74.0 Nonspecific elevation of levels of transaminase and lactic acid dehydrogenase [LDH]; F32.9 Major depressive disorder, single episode, unspecified; G47.00 Insomnia, unspecified; Z91.14 Patient's other noncompliance with medication regimen; B18.2 Chronic viral hepatitis C; K59.00 Constipation, unspecified
CPT/HCPCS: 2NBSP; 74181; 86618; 87476; ERO; 36592; 80307; 81001; 81003; 82436; 87389; 93005; 93010; 96374; G0480; J1885; J2405; J3250; J7042